=== PATIENT | female | born 1950 | race Caucasian/White ===

== ENCOUNTER 2017-08-25 13:18 | Emergency (ER) | payer MEDICARE ==
[2017-08-25 13:30] VITALS: BP 130/76
--- NOTE | 2017-08-25 13:54 | UC ---
Eye Complaint HPI - HPI Summary HPI Summary: c/o right eye pain over superior eyelid since yesterday, has been applying compresses - History of Current Complaint Chief Complaint: UCEye Stated Complaint: EYE ISSUE Time Seen by Provider: 08/25/17 13:38 Hx Obtained From: Patient ?: No Onset/Duration: Sudden Onset, Lasting Days - Allergies/Home Medications Allergies/Adverse Reactions: Allergies Allergy/AdvReac Type Severity Reaction Status Date / Time No Known Allergies Allergy Verified 08/25/17 13:27 PMH/Surg Hx/FS Hx/Imm Hx Previously Healthy: Yes Cancer History: Other - multiple myeloma Other Cancer History: multiple myeloma - Surgical History Surgical History: Yes Surgery Procedure, Year, and Place: STEM CELL TRANSPLANT 2011, TONSILECTOMY AGE 7, LYPOMA REMOVAL 1971, FIBROADENOMA REMOVED, RT FOOT BUNIONECTOMY - Social History Alcohol Use: None Substance Use Type: None Smoking Status (MU): Never Smoked Tobacco Review of Systems All Other Systems Reviewed And Are Negative: Yes Physical Exam Triage Information Reviewed: Yes Appearance: Well-Appearing Vital Signs: Initial Vital Signs Temp 98 F 08/25/17 13:28 Pulse 67 08/25/17 13:28 Resp 16 08/25/17 13:28 BP 130/76 08/25/17 13:28 Pulse Ox 99 08/25/17 13:28 Vital Signs Reviewed: Yes Eye Exam: Other Eyes: Positive: Discharge ENT Exam: Normal ENT: Positive: TMs normal Neck exam: Normal Respiratory Exam: Normal Cardiovascular Exam: Normal Eye Complaint Course/Dx - Differential Dx/Diagnosis Provider Diagnoses: hordeolum Discharge - Discharge Plan Condition: Stable Disposition: HOME Patient Education Materials: Amelie (ED)
== END 2017-08-25 14:15 | disposition home or self-care (01) ==
LOC: UCEAST 13:18
DX: H00.013 Hordeolum externum right eye, unspecified eyelid (principal); C90.00 Multiple myeloma not having achieved remission
CPT/HCPCS: 99212; G0463

== ENCOUNTER 2018-06-29 14:24 | Emergency (ER) | payer MEDICARE ==
--- OUTSIDE RECORDS SUMMARY | 2018-06-29 14:30 | XMS REPORT ---
:1950 External Reference #:[id number] Author Organization [facility] Address [facility] [place] [address] Phone [phone] Care Team Providers Name Role Phone Sunny Dc MD FACP Primary Care Physician Unavailable Payers Type Date Identification Numbers Payment Provider Subscriber Commercial Expires: Policy Number: [id number] Of BERE Villanueva 2015 PayID: [id number] [address] [address] [place] [address] Medicare Primary Policy Number: [id number] Medicare [place] Anish Villanueva PayID: [id number] [address] [place] [address] [facility] Policy Number: [id number] [facility] Health Care Options Anish Villanueva PayID: [id number] [facility] Care Claim 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 Family History Date Family Member(s) Problem(s) Comments Father CKD : (age 96 Father due to Natural Years) Causes Father Bladder Cancer Father Melanoma Mother Multiple Myeloma Advance state as of 2014 Mother Melanoma Mother Hypertension Mother Leukemia First Sister 63 Social History Type Date Description Comments Marital Status Single Occupation 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 ETOH Use Never used alcohol Smoking Patient has never smoked Recreational Drug Use Never Used Drugs Exercise Type/Frequency Exercises regularly 1 hour a day, 5 days a week Allergies, Adverse Reactions, Alerts Date Description Reaction Status Severity Comments 05/12/2015 NKDA active Medications Medication Date Status Form Strength Qnty SIG Indications Ordering Provider Valacyclovir HCL 11/18/19 Active Tablets 1gm 1 by Natacha, 16 mouth Frank E., every MD day Vitamin D3 10/29/19 Active Chewtabs 1000Unit 1 by M41.25 Natacha, 14 mouth Frank E., every MD day C90.00 Dexamethasone 09/28/2013 Active Tablets 4mg Take 3 tablets C90.00 Bael , by mouth daily Frank for 3 weeks each EMD Brandon month for multiple myeloma Zometa 10/29/2010 Active Solution 4mg/10 Administer 100 C90.00 Bael, 0ML ml intravenously Frank every 4-12 weeks EMD Brandon over 15 minutes for multiple myeloma Oseltamivir 12/04/2017 - Hx Capsules 75mg Take 1 capsule Natacha, Phosphate 12/09/2017 by mouth 2 times Frank per day for 5 EMD Brandon days for flu Pomalyst 02/26/2013 - Hx Capsules 2mg Take 2 capsules C90.00 Bael, 05/16/2016 by mouth daily Frank for 21 days 2 EMD Brandon hours before or 2 hours after a meal for multiple myeloma Immunizations CPT Code Status Date Vaccine Lot # [id number] Given 07/29/2014 Influenza Virus Split 3 Yrs And Above For Intramuscular Use [id number] Given 12/19/2012 Pneumococcal Vaccine 2Yrs Or Older [id number] Given 11/22/2012 Tdap-Tetanus, Diphtheria Toxoids/Acellular Pertussis Vaccine 7+ [id number] Refused 08/15/2017 Influenza Vaccine Quadrivalent Preser/Antibiotic Free Im Use Vital Signs Date Vital Result Comment 05/29/2018 Heart Rate 74 /min BP Systolic 95 mmHg BP Diastolic 70 mmHg BMI (Body Mass Index) 21.1 kg/m2 Weight 99.00 lb Height 57.5 inches 4'9.50" 12/06/2017 Body Temperature 97.7 F Heart Rate 78 /min BP Systolic 118 mmHg BP Diastolic 75 mmHg 08/15/2017 Body Temperature 97.6 F 05/28/2017 Body Temperature 98.1 F O2 % BldC Oximetry 95 % Heart Rate 62 /min BP Systolic 115 mmHg BP Diastolic 70 mmHg BMI (Body Mass Index) 21.3 kg/m2 Weight 100.00 lb Height 57.50 inches 4'9.50" 05/16/2016 Heart Rate 72 /min BP Systolic 90 mmHg BP Diastolic 60 mmHg BMI (Body Mass Index) 20.6 kg/m2 Weight 97.00 lb Height 57.5 inches 4'9.50" 01/18/2016 Weight 98.00 lb 05/12/2015 Body Temperature 98.6 F O2 % BldC Oximetry 98 % Heart Rate 69 /min BP Systolic 95 mmHg BP Diastolic 60 mmHg BMI (Body Mass Index) 20.3 kg/m2 Weight 97.00 lb Height 58 inches 4'10" Results Test Date Test Result H/L Range Note [place]/Lambda Free Light 06/03/2018 [place] Free Light Chain 278 mg/dL 1 Chains Ser Lambda Free Light Chain 0.1250 mg/dL 2 [place]/Lambda Free Light Chain >1000 3 Immunoglobulins Serum Quant 06/03/2018 Immunoglobulin G 280 mg/dL 767 - 1590 4 Immunoglobulin M <5 mg/dL 37 - 286 Immunoglobulin A 6 mg/dL 61 - 356 CBC Auto Diff 06/03/2018 White Blood Count 3.1 10^3/uL Low 3.5-10.8 Red Blood Count 3.90 10^6/uL Low 4.00-5.40 Hemoglobin 12.0 g/dL 12.0-16.0 Hematocrit 36 % 35-47 Mean Corpuscular Volume 92 fL 80-97 Mean Corpuscular Hemoglobin 31 pg 27-31 Mean Corpuscular HGB Conc 33 g/dL 31-36 Red Cell Distribution Width 16 % High 10.5-15 Platelet Count 207 10^3/uL 150-450 Mean Platelet Volume 7.6 um3 7.4-10.4 Abs Neutrophils 1.8 10^3/uL 1.5-7.7 Abs Lymphocytes 0.4 10^3/uL Low 1.0-4.8 Abs Monocytes 0.8 10^3/uL 0-0.8 Abs Eosinophils 0.1 10^3/uL 0-0.6 Abs Basophils 0 10^3/uL 0-0.2 Abs Nucleated RBC 0 10^3/uL Granulocyte % 58.9 % 38-83 Lymphocyte % 12.5 % Low 25-47 Monocyte % 24.4 % High 0-7 Eosinophil % 2.6 % 0-6 Basophil % 1.6 % 0-2 Nucleated Red Blood Cells % 0.2 Comp Metabolic Panel 06/03/2018 Sodium 138 mmol/L 135-145 Potassium 4.1 mmol/L 3.5-5.0 Chloride 104 mmol/L 101-111 Co2 Carbon Dioxide 29 mmol/L 22-32 Anion Gap 5 mmol/L 2-11 Calcium 9.5 mg/dL 8.6-10.3 Albumin 4.2 g/dL 3.2-5.2 Total Bilirubin 0.50 mg/dL 0.2-1.0 Glucose 95 mg/dL 70-100 Blood Urea Nitrogen 14 mg/dL 6-24 Creatinine 0.67 mg/dL 0.51-0.95 BUN/Creatinine Ratio 20.9 High 8-20 Total Protein 6.0 g/dL Low 6.4-8.9 Globulin 1.8 g/dL Low 2-4 Albumin/Globulin Ratio 2.3 1-3 Alkaline Phosphatase 53 U/L 34-104 Alt 17 U/L 7-52 Ast 19 U/L 13-39 Egfr Non- 87.8 >60 Egfr 106.2 >60 5 Laboratory test finding 06/03/2018 Magnesium 2.0 mg/dL 1.9-2.7 Laboratory test finding 06/03/2018 Partial Thrombo Time 32.0 seconds 26.0 -36.3 PTT Inr/Protime 06/03/2018 Inr 0.97 0.77-1.02 Laboratory test finding 05/20/2018 Magnesium 2.0 mg/dL 1.9-2.7 6 CBC Auto Diff 05/20/2018 White Blood Count 2.4 10^3/uL Low 3.5-10.8 Red Blood Count 3.69 10^6/uL Low 4.00-5.40 Hemoglobin 11.4 g/dL Low 12.0-16.0 Hematocrit 34 % Low 35-47 Mean Corpuscular Volume 92 fL 80-97 Mean Corpuscular Hemoglobin 31 pg 27-31 Mean Corpuscular HGB Conc 34 g/dL 31-36 Red Cell Distribution Width 16 % High 10.5-15 Platelet Count 263 10^3/uL 150-450 Mean Platelet Volume 8.5 um3 7.4-10.4 Abs Neutrophils 1.4 10^3/uL Low 1.5-7.7 Abs Lymphocytes 0.5 10^3/uL Low 1.0-4.8 Abs Monocytes 0.4 10^3/uL 0-0.8 Abs Eosinophils 0 10^3/uL 0-0.6 Abs Basophils 0.1 10^3/uL 0-0.2 Abs Nucleated RBC 0 10^3/uL Granulocyte % 58.6 % 38-83 Lymphocyte % 20.3 % Low 25-47 Monocyte % 16.6 % High 0-7 Eosinophil % 2.0 % 0-6 Basophil % 2.5 % High 0-2 Nucleated Red Blood Cells % 0.2 Comp Metabolic Panel 05/20/2018 Sodium 139 mmol/L 135-145 Potassium 4.5 mmol/L 3.5-5.0 Chloride 105 mmol/L 101-111 Co2 Carbon Dioxide 28 mmol/L 22-32 Anion Gap 6 mmol/L 2-11 Glucose 89 mg/dL 70-100 Blood Urea Nitrogen 15 mg/dL 6-24 Creatinine 0.66 mg/dL 0.51-0.95 BUN/Creatinine Ratio 22.7 High 8-20 Calcium 9.2 mg/dL 8.6-10.3 Total Protein 5.5 g/dL Low 6.4-8.9 Albumin 4.0 g/dL 3.2-5.2 Globulin 1.5 g/dL Low 2-4 Albumin/Globulin Ratio 2.7 1-3 Total Bilirubin 0.40 mg/dL 0.2-1.0 Alkaline Phosphatase 49 U/L 34-104 Alt 16 U/L 7-52 Ast 19 U/L 13-39 Egfr Non- 89.3 >60 Egfr 108.1 >60 7 Laboratory test finding 05/13/2018 Magnesium 1.8 mg/dL Low 1.9-2.7 CBC Auto Diff 05/13/2018 White Blood Count 3.0 10^3/uL Low 3.5-10.8 Red Blood Count 3.79 10^6/uL Low 4.00-5.40 Hemoglobin 12.0 g/dL 12.0-16.0 Hematocrit 35 % 35-47 Mean Corpuscular Volume 92 fL 80-97 Mean Corpuscular Hemoglobin 32 pg High 27-31 Mean Corpuscular HGB Conc 35 g/dL 31-36 Red Cell Distribution Width 16 % High 10.5-15 Platelet Count 237 10^3/uL 150-450 Mean Platelet Volume 7.9 um3 7.4-10.4 Abs Neutrophils 1.9 10^3/uL 1.5-7.7 Abs Lymphocytes 0.5 10^3/uL Low 1.0-4.8 Abs Monocytes 0.6 10^3/uL 0-0.8 Abs Eosinophils 0 10^3/uL 0-0.6 Abs Basophils 0 10^3/uL 0-0.2 Abs Nucleated RBC 0 10^3/uL Granulocyte % 63.4 % 38-83 Lymphocyte % 16.0 % Low 25-47 Monocyte % 18.6 % High 0-7 Eosinophil % 0.7 % 0-6 Basophil % 1.3 % 0-2 Nucleated Red Blood Cells % 0.1 Comp Metabolic Panel 05/13/2018 Sodium 137 mmol/L 135-145 Potassium 4.1 mmol/L 3.5-5.0 Chloride 104 mmol/L 101-111 Co2 Carbon Dioxide 27 mmol/L 22-32 Anion Gap 6 mmol/L 2-11 Glucose 87 mg/dL 70-100 Blood Urea Nitrogen 13 mg/dL 6-24 Creatinine 0.67 mg/dL 0.51-0.95 BUN/Creatinine Ratio 19.4 8-20 Calcium 9.1 mg/dL 8.6-10.3 Total Protein 5.5 g/dL Low 6.4-8.9 Albumin 4.0 g/dL 3.2-5.2 Globulin 1.5 g/dL Low 2-4 Albumin/Globulin Ratio 2.7 1-3 Total Bilirubin 0.50 mg/dL 0.2-1.0 Alkaline Phosphatase 51 U/L 34-104 Alt 18 U/L 7-52 Ast 20 U/L 13-39 Egfr Non- 87.8 >60 Egfr 106.2 >60 8 Protein Electrophoresis 04/27/2018 Total Protein(Pep) 5.6 g/dL 6.3 - 7.9 Albumin 3.3 g/dL 3.4-4.7 Alpha-1 Globulin 0.3 g/dL 0.1-0.3 Alpha-2 Globulin 1.0 g/dL 0.6-1.0 Beta Globulin 0.8 g/dL 0.7-1.2 Gamma Globulin 0.3 g/dL 0.6-1.6 Albumin/Globulin Ratio 1.44 Impression See Comment 9 Immunoglobulins Serum Quant 04/27/2018 Immunoglobulin G 223 mg/dL 767 - 1590 10 Immunoglobulin M <5 mg/dL 37 - 286 Immunoglobulin A 4 mg/dL 61 - 356 CBC Auto Diff 04/27/2018 White Blood Count 4.1 10^3/uL 3.5-10.8 Red Blood Count 3.81 10^6/uL Low 4.00-5.40 Hemoglobin 11.6 g/dL Low 12.0-16.0 Hematocrit 35 % 35-47 Mean Corpuscular Volume 91 fL 80-97 Mean Corpuscular Hemoglobin 30 pg 27-31 Mean Corpuscular HGB Conc 33 g/dL 31-36 Red Cell Distribution Width 16 % High 10.5-15 Platelet Count 270 10^3/uL 150-450 Mean Platelet Volume 8.3 um3 7.4-10.4 Abs Neutrophils 3.3 10^3/uL 1.5-7.7 Abs Lymphocytes 0.3 10^3/uL Low 1.0-4.8 Abs Monocytes 0.5 10^3/uL 0-0.8 Abs Eosinophils 0 10^3/uL 0-0.6 Abs Basophils 0 10^3/uL 0-0.2 Abs Nucleated RBC 0 10^3/uL Granulocyte % 80.1 % 38-83 Lymphocyte % 6.8 % Low 25-47 Monocyte % 12.0 % High 0-7 Eosinophil % 0.4 % 0-6 Basophil % 0.7 % 0-2 Nucleated Red Blood Cells % 0.2 Comp Metabolic Panel 04/27/2018 Sodium 137 mmol/L 135-145 Potassium 4.6 mmol/L 3.5-5.0 Chloride 104 mmol/L 101-111 Co2 Carbon Dioxide 25 mmol/L 22-32 Anion Gap 8 mmol/L 2-11 Glucose 83 mg/dL 70-100 Blood Urea Nitrogen 15 mg/dL 6-24 Creatinine 0.67 mg/dL 0.51-0.95 BUN/Creatinine Ratio 22.4 High 8-20 Calcium 9.1 mg/dL 8.6-10.3 Total Protein 5.7 g/dL Low 6.4-8.9 Albumin 4.0 g/dL 3.2-5.2 Globulin 1.7 g/dL Low 2-4 Albumin/Globulin Ratio 2.4 1-3 Total Bilirubin 0.50 mg/dL 0.2-1.0 Alkaline Phosphatase 54 U/L 34-104 Alt 18 U/L 7-52 Ast 20 U/L 13-39 Egfr Non- 87.8 >60 Egfr 106.2 >60 11 [place]/Lambda Free Light Chains Ser 04/27/2018 [place] Free Light Chain 327 mg/ dL 12 Lambda Free Light Chain 0.0422 mg/dL 13 [place]/Lambda Free Light Chain >1000 14 Laboratory test finding 04/27/2018 Magnesium 1.9 mg/dL 1.9-2.7 15 Immunoglobulins Serum Quant 04/08/2018 Immunoglobulin G 231 mg/dL 767 - 1590 16 Immunoglobulin M <5 mg/dL 37 - 286 Immunoglobulin A 4 mg/dL 61 - 356 Protein Electrophoresis 04/08/2018 Total Protein(Pep) 6.1 g/dL 6.3 - 7.9 Albumin 3.4 g/dL 3.4-4.7 Alpha-1 Globulin 0.3 g/dL 0.1-0.3 Alpha-2 Globulin 1.1 g/dL 0.6-1.0 Beta Globulin 0.9 g/dL 0.7-1.2 Gamma Globulin 0.3 g/dL 0.6-1.6 Albumin/Globulin Ratio 1.29 Impression See Comment 17 CBC Auto Diff 04/08/2018 White Blood Count 4.3 10^3/uL 3.5-10.8 Red Blood Count 3.76 10^6/uL Low 4.00-5.40 Hemoglobin 11.4 g/dL Low 12.0-16.0 Hematocrit 34 % Low 35-47 Mean Corpuscular Volume 91 fL 80-97 Mean Corpuscular Hemoglobin 30 pg 27-31 Mean Corpuscular HGB Conc 33 g/dL 31-36 Red Cell Distribution Width 17 % High 10.5-15 Platelet Count 214 10^3/uL 150-450 Mean Platelet Volume 8.8 um3 7.4-10.4 Abs Neutrophils 3.3 10^3/uL 1.5-7.7 Abs Lymphocytes 0.6 10^3/uL Low 1.0-4.8 Abs Monocytes 0.4 10^3/uL 0-0.8 Abs Eosinophils 0 10^3/uL 0-0.6 Abs Basophils 0 10^3/uL 0-0.2 Abs Nucleated RBC 0 10^3/uL Granulocyte % 77.4 % 38-83 Lymphocyte % 13.5 % Low 25-47 Monocyte % 8.5 % High 0-7 Eosinophil % 0.1 % 0-6 Basophil % 0.5 % 0-2 Nucleated Red Blood Cells % 0.1 Comp Metabolic Panel 04/08/2018 Sodium 138 mmol/L Low 139-145 Potassium 4.6 mmol/L 3.5-5.0 Chloride 104 mmol/L 101-111 Co2 Carbon Dioxide 26 mmol/L 22-32 Anion Gap 8 mmol/L 2-11 Glucose 89 mg/dL 70-100 Blood Urea Nitrogen 17 mg/dL 6-24 Creatinine 0.74 mg/dL 0.51-0.95 BUN/Creatinine Ratio 23.0 High 8-20 Calcium 9.4 mg/dL 8.6-10.3 Total Protein 5.9 g/dL Low 6.4-8.9 Albumin 4.2 g/dL 3.2-5.2 Globulin 1.7 g/dL Low 2-4 Albumin/Globulin Ratio 2.5 1-3 Total Bilirubin 0.40 mg/dL 0.2-1.0 Alkaline Phosphatase 49 U/L 34-104 Alt 16 U/L 7-52 Ast 20 U/L 13-39 Egfr Non- 78.3 >60 Egfr 100.7 >60 18 [place]/Lambda Free Light Chains Ser 04/08/2018 [place] Free Light Chain 283 mg/ dL 19 Lambda Free Light Chain 0.0413 mg/dL 20 [place]/Lambda Free Light Chain >1000 21 Laboratory test finding 04/08/2018 Magnesium 2.0 mg/dL 1.9-2.7 CBC Auto Diff 04/01/2018 White Blood Count 4.4 10^3/uL 3.5-10.8 Red Blood Count 3.71 10^6/uL Low 4.0-5.4 Hemoglobin 11.5 g/dL Low 12.0-16.0 Hematocrit 34 % Low 35-47 Mean Corpuscular Volume 91 fL 80-97 Mean Corpuscular Hemoglobin 31 pg 27-31 Mean Corpuscular HGB Conc 34 g/dL 31-36 Red Cell Distribution Width 17 % High 10.5-15 Platelet Count 222 10^3/uL 150-450 Mean Platelet Volume 8.9 um3 7.4-10.4 Abs Neutrophils 3.3 10^3/uL 1.5-7.7 Abs Lymphocytes 0.6 10^3/uL Low 1.0-4.8 Abs Monocytes 0.4 10^3/uL 0-0.8 Abs Eosinophils 0 10^3/uL 0-0.6 Abs Basophils 0 10^3/uL 0-0.2 Abs Nucleated RBC 0 10^3/uL Granulocyte % 76.0 % 38-83 Lymphocyte % 13.5 % Low 25-47 Monocyte % 9.7 % High 0-7 Eosinophil % 0.2 % 0-6 Basophil % 0.6 % 0-2 Nucleated Red Blood Cells % 0 Laboratory test finding 04/01/2018 Magnesium 2.0 mg/dL 1.9-2.7 22 Comp Metabolic Panel 04/01/2018 Sodium 139 mmol/L 139-145 Potassium 4.2 mmol/L 3.5-5.0 Chloride 104 mmol/L 101-111 Co2 Carbon Dioxide 28 mmol/L 22-32 Anion Gap 7 mmol/L 2-11 Glucose 88 mg/dL 70-100 Blood Urea Nitrogen 16 mg/dL 6-24 Creatinine 0.70 mg/dL 0.51-0.95 BUN/Creatinine Ratio 22.9 High 8-20 Calcium 9.2 mg/dL 8.6-10.3 Total Protein 5.6 g/dL Low 6.4-8.9 Albumin 4.0 g/dL 3.2-5.2 Globulin 1.6 g/dL Low 2-4 Albumin/Globulin Ratio 2.5 1-3 Total Bilirubin 0.40 mg/dL 0.2-1.0 Alkaline Phosphatase 49 U/L 34-104 Alt 15 U/L 7-52 Ast 20 U/L 13-39 Egfr Non- 83.5 >60 Egfr 107.3 >60 23 Protein Electrophoresis 03/21/2018 Total Protein(Pep) 5.8 g/dL 6.3 - 7.9 Albumin 3.4 g/dL 3.4-4.7 Alpha-1 Globulin 0.3 g/dL 0.1-0.3 Alpha-2 Globulin 1.0 g/dL 0.6-1.0 Beta Globulin 0.9 g/dL 0.7-1.2 Gamma Globulin 0.3 g/dL 0.6-1.6 Albumin/Globulin Ratio 1.42 Impression See Comment 24 Immunoglobulins Serum Quant 03/21/2018 Immunoglobulin G 234 mg/dL 767 - 1590 25 Immunoglobulin M <5 mg/dL 37 - 286 Immunoglobulin A 4 mg/dL 61 - 356 CBC Auto Diff 03/21/2018 White Blood Count 5.6 10^3/uL 3.5-10.8 Red Blood Count 3.85 10^6/uL Low 4.0-5.4 Hemoglobin 11.3 g/dL Low 12.0-16.0 Hematocrit 35 % 35-47 Mean Corpuscular Volume 91 fL 80-97 Mean Corpuscular Hemoglobin 30 pg 27-31 Mean Corpuscular HGB Conc 32 g/dL 31-36 Red Cell Distribution Width 17 % High 10.5-15 Platelet Count 225 10^3/uL 150-450 Mean Platelet Volume 8.5 um3 7.4-10.4 Abs Neutrophils 4.8 10^3/uL 1.5-7.7 Abs Lymphocytes 0.4 10^3/uL Low 1.0-4.8 Abs Monocytes 0.5 10^3/uL 0-0.8 Abs Eosinophils 0 10^3/uL 0-0.6 Abs Basophils 0 10^3/uL 0-0.2 Abs Nucleated RBC 0 10^3/uL Granulocyte % 84.4 % High 38-83 Lymphocyte % 6.5 % Low 25-47 Monocyte % 8.5 % High 0-7 Eosinophil % 0.2 % 0-6 Basophil % 0.4 % 0-2 Nucleated Red Blood Cells % 0 [place]/Lambda Free Light Chains Ser 03/21/2018 [place] Free Light Chain 175 mg/ dL 26 Lambda Free Light Chain <0.0274 mg/dL 27 [place]/Lambda Free Light Chain >1000 28 Comp Metabolic Panel 03/21/2018 Sodium 139 mmol/L 139-145 Potassium 4.4 mmol/L 3.5-5.0 Chloride 105 mmol/L 101-111 Co2 Carbon Dioxide 28 mmol/L 22-32 Anion Gap 6 mmol/L 2-11 Glucose 83 mg/dL 70-100 Blood Urea Nitrogen 18 mg/dL 6-24 Creatinine 0.71 mg/dL 0.51-0.95 BUN/Creatinine Ratio 25.4 High 8-20 Calcium 9.0 mg/dL 8.6-10.3 Total Protein 5.8 g/dL Low 6.4-8.9 Albumin 4.1 g/dL 3.2-5.2 Globulin 1.7 g/dL Low 2-4 Albumin/Globulin Ratio 2.4 1-3 Total Bilirubin 0.40 mg/dL 0.2-1.0 Alkaline Phosphatase 51 U/L 34-104 Alt 16 U/L 7-52 Ast 22 U/L 13-39 Egfr Non- 82.1 >60 Egfr 105.6 >60 29 Laboratory test finding 03/21/2018 Magnesium 1.9 mg/dL 1.9-2.7 30 [place]/Lambda Free Light 03/18/2018 [place] Free Light Chain 188 mg/dL 31 Chains Ser Lambda Free Light Chain 0.1790 mg/dL 32 [place]/Lambda Free Light Chain >1000 33 CBC Auto Diff 03/18/2018 White Blood Count 4.4 10^3/uL 3.5-10.8 Red Blood Count 3.76 10^6/uL Low 4.0-5.4 Hemoglobin 11.6 g/dL Low 12.0-16.0 Hematocrit 34 % Low 35-47 Mean Corpuscular Volume 90 fL 80-97 Mean Corpuscular Hemoglobin 31 pg 27-31 Mean Corpuscular HGB Conc 34 g/dL 31-36 Red Cell Distribution Width 17 % High 10.5-15 Platelet Count 239 10^3/uL 150-450 Mean Platelet Volume 8.5 um3 7.4-10.4 Abs Neutrophils 3.4 10^3/uL 1.5-7.7 Abs Lymphocytes 0.6 10^3/uL Low 1.0-4.8 Abs Monocytes 0.3 10^3/uL 0-0.8 Abs Eosinophils 0 10^3/uL 0-0.6 Abs Basophils 0 10^3/uL 0-0.2 Abs Nucleated RBC 0 10^3/uL Granulocyte % 77.6 % 38-83 Lymphocyte % 14.0 % Low 25-47 Monocyte % 7.8 % High 0-7 Eosinophil % 0.3 % 0-6 Basophil % 0.3 % 0-2 Nucleated Red Blood Cells % 0 Comp Metabolic Panel 03/18/2018 Sodium 139 mmol/L 139-145 Potassium 4.3 mmol/L 3.5-5.0 Chloride 104 mmol/L 101-111 Co2 Carbon Dioxide 27 mmol/L 22-32 Anion Gap 8 mmol/L 2-11 Glucose 89 mg/dL 70-100 Blood Urea Nitrogen 17 mg/dL 6-24 Creatinine 0.67 mg/dL 0.51-0.95 BUN/Creatinine Ratio 25.4 High 8-20 Calcium 9.1 mg/dL 8.6-10.3 Total Protein 5.7 g/dL Low 6.4-8.9 Albumin 4.1 g/dL 3.2-5.2 Globulin 1.6 g/dL Low 2-4 Albumin/Globulin Ratio 2.6 1-3 Total Bilirubin 0.40 mg/dL 0.2-1.0 Alkaline Phosphatase 47 U/L 34-104 Alt 15 U/L 7-52 Ast 22 U/L 13-39 Egfr Non- 87.8 >60 Egfr 112.9 >60 34 Laboratory test finding 03/18/2018 Magnesium 1.9 mg/dL 1.9-2.7 35 Comp Metabolic Panel 03/04/2018 Sodium 138 mmol/L Low 139-145 Potassium 4.2 mmol/L 3.5-5.0 Chloride 104 mmol/L 101-111 Co2 Carbon Dioxide 29 mmol/L 22-32 Anion Gap 5 mmol/L 2-11 Glucose 88 mg/dL 70-100 Blood Urea Nitrogen 13 mg/dL 6-24 Creatinine 0.67 mg/dL 0.51-0.95 BUN/Creatinine Ratio 19.4 8-20 Calcium 9.0 mg/dL 8.6-10.3 Total Protein 5.7 g/dL Low 6.4-8.9 Albumin 4.1 g/dL 3.2-5.2 Globulin 1.6 g/dL Low 2-4 Albumin/Globulin Ratio 2.6 1-3 Total Bilirubin 0.30 mg/dL 0.2-1.0 Alkaline Phosphatase 42 U/L 34-104 Alt 15 U/L 7-52 Ast 19 U/L 13-39 Egfr Non- 87.8 >60 Egfr 112.9 >60 36 Laboratory test finding 03/04/2018 Magnesium 2.2 mg/dL 1.9-2.7 37 CBC Auto Diff 03/04/2018 White Blood Count 3.4 10^3/uL Low 3.5-10.8 Red Blood Count 3.82 10^6/uL Low 4.0-5.4 Hemoglobin 11.4 g/dL Low 12.0-16.0 Hematocrit 34 % Low 35-47 Mean Corpuscular Volume 90 fL 80-97 Mean Corpuscular Hemoglobin 30 pg 27-31 Mean Corpuscular HGB Conc 33 g/dL 31-36 Red Cell Distribution Width 18 % High 10.5-15 Platelet Count 252 10^3/uL 150-450 Mean Platelet Volume 8.6 um3 7.4-10.4 Abs Neutrophils 2.5 10^3/uL 1.5-7.7 Abs Lymphocytes 0.6 10^3/uL Low 1.0-4.8 Abs Monocytes 0.3 10^3/uL 0-0.8 Abs Eosinophils 0 10^3/uL 0-0.6 Abs Basophils 0 10^3/uL 0-0.2 Abs Nucleated RBC 0 10^3/uL Granulocyte % 73.8 % 38-83 Lymphocyte % 17.0 % Low 25-47 Monocyte % 8.2 % High 0-7 Eosinophil % 0.3 % 0-6 Basophil % 0.7 % 0-2 Nucleated Red Blood Cells % 0.1 CBC Auto Diff 02/22/2018 White Blood Count 4.1 10^3/uL 3.5-10.8 Red Blood Count 3.82 10^6/uL Low 4.0-5.4 Hemoglobin 11.3 g/dL Low 12.0-16.0 Hematocrit 34 % Low 35-47 Mean Corpuscular Volume 90 fL 80-97 Mean Corpuscular Hemoglobin 30 pg 27-31 Mean Corpuscular HGB Conc 33 g/dL 31-36 Red Cell Distribution Width 18 % High 10.5-15 Platelet Count 191 10^3/uL 150-450 Mean Platelet Volume 9.0 um3 7.4-10.4 Abs Neutrophils 3.1 10^3/uL 1.5-7.7 Abs Lymphocytes 0.4 10^3/uL Low 1.0-4.8 Abs Monocytes 0.5 10^3/uL 0-0.8 Abs Eosinophils 0 10^3/uL 0-0.6 Abs Basophils 0 10^3/uL 0-0.2 Abs Nucleated RBC 0 10^3/uL Granulocyte % 76.6 % 38-83 Lymphocyte % 10.8 % Low 25-47 Monocyte % 11.9 % High 0-7 Eosinophil % 0.2 % 0-6 Basophil % 0.5 % 0-2 Nucleated Red Blood Cells % 0.2 Comp Metabolic Panel 02/22/2018 Sodium 138 mmol/L Low 139-145 Potassium 3.8 mmol/L 3.5-5.0 Chloride 103 mmol/L 101-111 Co2 Carbon Dioxide 27 mmol/L 22-32 Anion Gap 8 mmol/L 2-11 Glucose 81 mg/dL 70-100 Blood Urea Nitrogen 19 mg/dL 6-24 Creatinine 0.71 mg/dL 0.51-0.95 BUN/Creatinine Ratio 26.8 High 8-20 Calcium 9.1 mg/dL 8.6-10.3 Total Protein 5.8 g/dL Low 6.4-8.9 Albumin 4.2 g/dL 3.2-5.2 Globulin 1.6 g/dL Low 2-4 Albumin/Globulin Ratio 2.6 1-3 Total Bilirubin 0.40 mg/dL 0.2-1.0 Alkaline Phosphatase 43 U/L 34-104 Alt 18 U/L 7-52 Ast 23 U/L 13-39 Egfr Non- 82.1 >60 Egfr 105.6 >60 38 Laboratory test finding 02/22/2018 Magnesium 2.0 mg/dL 1.9-2.7 39 Protein Electrophoresis 02/22/2018 Total Protein(Pep) 6.0 g/dL 6.3 - 7.9 Albumin 3.4 g/dL 3.4-4.7 Alpha-1 Globulin 0.3 g/dL 0.1-0.3 Alpha-2 Globulin 1.1 g/dL 0.6-1.0 Beta Globulin 0.9 g/dL 0.7-1.2 Gamma Globulin 0.3 g/dL 0.6-1.6 Albumin/Globulin Ratio 1.33 Impression See Comment 40 [place]/Lambda Free Light Chains 02/22/2018 [place] Free Light Chain 83.6 mg/dL 41 Ser Lambda Free Light Chain 0.0532 mg/dL 42 [place]/Lambda Free Light Chain >1000 43 Immunoglobulins Serum Quant 02/22/2018 Immunoglobulin G 232 mg/dL 767 - 1590 44 Immunoglobulin M <5 mg/dL 37 - 286 Immunoglobulin A 3 mg/dL 61 - 356 CBC Auto Diff 02/18/2018 White Blood Count 4.3 10^3/uL 3.5-10.8 Red Blood Count 3.74 10^6/uL Low 4.0-5.4 Hemoglobin 11.4 g/dL Low 12.0-16.0 Hematocrit 33 % Low 35-47 Mean Corpuscular Volume 89 fL 80-97 Mean Corpuscular Hemoglobin 30 pg 27-31 Mean Corpuscular HGB Conc 34 g/dL 31-36 Red Cell Distribution Width 19 % High 10.5-15 Platelet Count 227 10^3/uL 150-450 Mean Platelet Volume 8.8 um3 7.4-10.4 Abs Neutrophils 3.4 10^3/uL 1.5-7.7 Abs Lymphocytes 0.6 10^3/uL Low 1.0-4.8 Abs Monocytes 0.3 10^3/uL 0-0.8 Abs Eosinophils 0 10^3/uL 0-0.6 Abs Basophils 0 10^3/uL 0-0.2 Abs Nucleated RBC 0 10^3/uL Granulocyte % 77.7 % 38-83 Lymphocyte % 14.1 % Low 25-47 Monocyte % 7.7 % High 0-7 Eosinophil % 0.1 % 0-6 Basophil % 0.4 % 0-2 Nucleated Red Blood Cells % 0.2 Comp Metabolic Panel 02/18/2018 Sodium 140 mmol/L 139-145 Potassium 4.3 mmol/L 3.5-5.0 Chloride 104 mmol/L 101-111 Co2 Carbon Dioxide 27 mmol/L 22-32 Anion Gap 9 mmol/L 2-11 Glucose 87 mg/dL 70-100 Blood Urea Nitrogen 15 mg/dL 6-24 Creatinine 0.71 mg/dL 0.51-0.95 BUN/Creatinine Ratio 21.1 High 8-20 Calcium 9.5 mg/dL 8.6-10.3 Total Protein 5.9 g/dL Low 6.4-8.9 Albumin 4.2 g/dL 3.2-5.2 Globulin 1.7 g/dL Low 2-4 Albumin/Globulin Ratio 2.5 1-3 Total Bilirubin 0.40 mg/dL 0.2-1.0 Alkaline Phosphatase 46 U/L 34-104 Alt 16 U/L 7-52 Ast 22 U/L 13-39 Egfr Non- 82.1 >60 Egfr 105.6 >60 45 Laboratory test finding 02/18/2018 Magnesium 2.0 mg/dL 1.9-2.7 CBC Auto Diff 02/11/2018 White Blood Count 3.9 10^3/uL 3.5-10.8 Red Blood Count 3.80 10^6/uL Low 4.0-5.4 Hemoglobin 11.5 g/dL Low 12.0-16.0 Hematocrit 34 % Low 35-47 Mean Corpuscular Volume 89 fL 80-97 Mean Corpuscular Hemoglobin 30 pg 27-31 Mean Corpuscular HGB Conc 34 g/dL 31-36 Red Cell Distribution Width 19 % High 10.5-15 Platelet Count 223 10^3/uL 150-450 Mean Platelet Volume 8.8 um3 7.4-10.4 Abs Neutrophils 2.8 10^3/uL 1.5-7.7 Abs Lymphocytes 0.7 10^3/uL Low 1.0-4.8 Abs Monocytes 0.5 10^3/uL 0-0.8 Abs Eosinophils 0 10^3/uL 0-0.6 Abs Basophils 0 10^3/uL 0-0.2 Abs Nucleated RBC 0 10^3/uL Granulocyte % 70.7 % 38-83 Lymphocyte % 16.7 % Low 25-47 Monocyte % 11.6 % High 0-7 Eosinophil % 0.3 % 0-6 Basophil % 0.7 % 0-2 Nucleated Red Blood Cells % 0.1 Comp Metabolic Panel 02/11/2018 Sodium 138 mmol/L Low 139-145 Potassium 4.0 mmol/L 3.5-5.0 Chloride 104 mmol/L 101-111 Co2 Carbon Dioxide 28 mmol/L 22-32 Anion Gap 6 mmol/L 2-11 Glucose 85 mg/dL 70-100 Blood Urea Nitrogen 15 mg/dL 6-24 Creatinine 0.70 mg/dL 0.51-0.95 BUN/Creatinine Ratio 21.4 High 8-20 Calcium 9.3 mg/dL 8.6-10.3 Total Protein 5.8 g/dL Low 6.4-8.9 Albumin 4.3 g/dL 3.2-5.2 Globulin 1.5 g/dL Low 2-4 Albumin/Globulin Ratio 2.9 1-3 Total Bilirubin 0.40 mg/dL 0.2-1.0 Alkaline Phosphatase 57 U/L 34-104 Alt 17 U/L 7-52 Ast 22 U/L 13-39 Egfr Non- 83.5 >60 Egfr 107.3 >60 46 Laboratory test finding 02/11/2018 Magnesium 2.0 mg/dL 1.9-2.7 47 Laboratory test finding 01/28/2018 Magnesium 2.0 mg/dL 1.9-2.7 Protein Electrophoresis 01/28/2018 Total Protein(Pep) 6.1 g/dL 6.3 - 7.9 Albumin 3.5 g/dL 3.4-4.7 Alpha-1 Globulin 0.3 g/dL 0.1-0.3 Alpha-2 Globulin 1.1 g/dL 0.6-1.0 Beta Globulin 0.9 g/dL 0.7-1.2 Gamma Globulin 0.3 g/dL 0.6-1.6 Albumin/Globulin Ratio 1.36 Impression See Comment 48 Immunoglobulins Serum Quant 01/28/2018 Immunoglobulin G 276 mg/dL 767 - 1590 49 Immunoglobulin M <5 mg/dL 37 - 286 Immunoglobulin A 5 mg/dL 61 - 356 [place]/Lambda Free Light Chains 01/28/2018 [place] Free Light Chain 98.3 mg/dL 50 Ser Lambda Free Light Chain 0.0282 mg/dL 51 [place]/Lambda Free Light Chain >1000 52 CBC Auto Diff 01/28/2018 White Blood Count 2.1 10^3/uL Low 3.5-10.8 Red Blood Count 4.00 10^6/uL 4.0-5.4 Hemoglobin 11.9 g/dL Low 12.0-16.0 Hematocrit 35 % 35-47 Mean Corpuscular Volume 88 fL 80-97 Mean Corpuscular Hemoglobin 30 pg 27-31 Mean Corpuscular HGB Conc 34 g/dL 31-36 Red Cell Distribution Width 19 % High 10.5-15 Platelet Count 243 10^3/uL 150-450 Mean Platelet Volume 8.5 um3 7.4-10.4 Abs Neutrophils 1.4 10^3/uL Low 1.5-7.7 Abs Lymphocytes 0.5 10^3/uL Low 1.0-4.8 Abs Monocytes 0.2 10^3/uL 0-0.8 Abs Eosinophils 0 10^3/uL 0-0.6 Abs Basophils 0 10^3/uL 0-0.2 Abs Nucleated RBC 0 10^3/uL Granulocyte % 63.8 % 38-83 Lymphocyte % 22.3 % Low 25-47 Monocyte % 11.4 % High 0-7 Eosinophil % 1.3 % 0-6 Basophil % 1.2 % 0-2 Nucleated Red Blood Cells % 0.1 Comp Metabolic Panel 01/28/2018 Sodium 140 mmol/L 139-145 Potassium 3.9 mmol/L 3.5-5.0 Chloride 107 mmol/L 101-111 Co2 Carbon Dioxide 28 mmol/L 22-32 Anion Gap 5 mmol/L 2-11 Glucose 90 mg/dL 70-100 Blood Urea Nitrogen 14 mg/dL 6-24 Creatinine 0.65 mg/dL 0.51-0.95 BUN/Creatinine Ratio 21.5 High 8-20 Calcium 9.2 mg/dL 8.6-10.3 Total Protein 5.5 g/dL Low 6.4-8.9 Albumin 4.1 g/dL 3.2-5.2 Globulin 1.4 g/dL Low 2-4 Albumin/Globulin Ratio 2.9 1-3 Total Bilirubin 0.40 mg/dL 0.2-1.0 Alkaline Phosphatase 53 U/L 34-104 Alt 16 U/L 7-52 Ast 20 U/L 13-39 Egfr Non- 90.9 >60 Egfr 116.9 >60 53 CBC Auto Diff 01/21/2018 White Blood Count 5.2 10^3/uL 3.5-10.8 Red Blood Count 3.87 10^6/uL Low 4.0-5.4 Hemoglobin 11.5 g/dL Low 12.0-16.0 Hematocrit 34 % Low 35-47 Mean Corpuscular Volume 88 fL 80-97 Mean Corpuscular Hemoglobin 30 pg 27-31 Mean Corpuscular HGB Conc 34 g/dL 31-36 Red Cell Distribution Width 19 % High 10.5-15 Platelet Count 251 10^3/uL 150-450 Mean Platelet Volume 8.4 um3 7.4-10.4 Abs Neutrophils 4.2 10^3/uL 1.5-7.7 Abs Lymphocytes 0.5 10^3/uL Low 1.0-4.8 Abs Monocytes 0.4 10^3/uL 0-0.8 Abs Eosinophils 0 10^3/uL 0-0.6 Abs Basophils 0 10^3/uL 0-0.2 Abs Nucleated RBC 0 10^3/uL Granulocyte % 80.4 % 38-83 Lymphocyte % 9.9 % Low 25-47 Monocyte % 8.6 % High 0-7 Eosinophil % 0.2 % 0-6 Basophil % 0.9 % 0-2 Nucleated Red Blood Cells % 0.1 Comp Metabolic Panel 01/21/2018 Sodium 137 mmol/L 133-145 Potassium 4.2 mmol/L 3.5-5.0 Chloride 103 mmol/L 101-111 Co2 Carbon Dioxide 29 mmol/L 22-32 Anion Gap 5 mmol/L 2-11 Glucose 91 mg/dL 70-100 Blood Urea Nitrogen 15 mg/dL 6-24 Creatinine 0.68 mg/dL 0.51-0.95 BUN/Creatinine Ratio 22.1 High 8-20 Calcium 9.4 mg/dL 8.6-10.3 Total Protein 5.9 g/dL Low 6.4-8.9 Albumin 4.2 g/dL 3.2-5.2 Globulin 1.7 g/dL Low 2-4 Albumin/Globulin Ratio 2.5 1-3 Total Bilirubin 0.30 mg/dL 0.2-1.0 Alkaline Phosphatase 48 U/L 34-104 Alt 16 U/L 7-52 Ast 23 U/L 13-39 Egfr Non- 86.3 >60 Egfr 111.0 >60 54 Laboratory test finding 01/21/2018 Magnesium 2.0 mg/dL 1.9-2.7 55 CBC Auto Diff 01/14/2018 White Blood Count 5.4 10^3/uL 3.5-10.8 Red Blood Count 4.09 10^6/uL 4.0-5.4 Hemoglobin 12.0 g/dL 12.0-16.0 Hematocrit 35 % 35-47 Mean Corpuscular Volume 87 fL 80-97 Mean Corpuscular Hemoglobin 29 pg 27-31 Mean Corpuscular HGB Conc 34 g/dL 31-36 Red Cell Distribution Width 19 % High 10.5-15 Platelet Count 265 10^3/uL 150-450 Mean Platelet Volume 9 um3 7.4-10.4 Abs Neutrophils 4.4 10^3/uL 1.5-7.7 Abs Lymphocytes 0.5 10^3/uL Low 1.0-4.8 Abs Monocytes 0.4 10^3/uL 0-0.8 Abs Eosinophils 0 10^3/uL 0-0.6 Abs Basophils 0 10^3/uL 0-0.2 Abs Nucleated RBC 0 10^3/uL Granulocyte % 81.3 % 38-83 Lymphocyte % 10.0 % Low 25-47 Monocyte % 7.5 % High 0-7 Eosinophil % 0.4 % 0-6 Basophil % 0.8 % 0-2 Nucleated Red Blood Cells % 0.1 Comp Metabolic Panel 01/14/2018 Sodium 137 mmol/L 133-145 Potassium 4.0 mmol/L 3.5-5.0 Chloride 102 mmol/L 101-111 Co2 Carbon Dioxide 29 mmol/L 22-32 Anion Gap 6 mmol/L 2-11 Glucose 84 mg/dL 70-100 Blood Urea Nitrogen 17 mg/dL 6-24 Creatinine 0.70 mg/dL 0.51-0.95 BUN/Creatinine Ratio 24.3 High 8-20 Calcium 9.8 mg/dL 8.6-10.3 Total Protein 6.2 g/dL Low 6.4-8.9 Albumin 4.3 g/dL 3.2-5.2 Globulin 1.9 g/dL Low 2-4 Albumin/Globulin Ratio 2.3 1-3 Total Bilirubin 0.40 mg/dL 0.2-1.0 Alkaline Phosphatase 60 U/L 34-104 Alt 17 U/L 7-52 Ast 22 U/L 13-39 Egfr Non- 83.5 >60 Egfr 107.3 >60 56 Laboratory test finding 01/14/2018 Magnesium 2.1 mg/dL 1.9-2.7 57 CBC Auto Diff 01/07/2018 White Blood Count 4.3 10^3/uL 3.5-10.8 Red Blood Count 3.90 10^6/uL Low 4.0-5.4 Hemoglobin 11.4 g/dL Low 12.0-16.0 Hematocrit 34 % Low 35-47 Mean Corpuscular Volume 88 fL 80-97 Mean Corpuscular Hemoglobin 29 pg 27-31 Mean Corpuscular HGB Conc 33 g/dL 31-36 Red Cell Distribution Width 19 % High 10.5-15 Platelet Count 261 10^3/uL 150-450 Mean Platelet Volume 8 um3 7.4-10.4 Abs Neutrophils 3.4 10^3/uL 1.5-7.7 Abs Lymphocytes 0.5 10^3/uL Low 1.0-4.8 Abs Monocytes 0.4 10^3/uL 0-0.8 Abs Eosinophils 0 10^3/uL 0-0.6 Abs Basophils 0 10^3/uL 0-0.2 Abs Nucleated RBC 0 10^3/uL Granulocyte % 77.8 % 38-83 Lymphocyte % 11.3 % Low 25-47 Monocyte % 9.5 % High 0-7 Eosinophil % 0.8 % 0-6 Basophil % 0.6 % 0-2 Nucleated Red Blood Cells % 0 Comp Metabolic Panel 01/07/2018 Sodium 136 mmol/L 133-145 Potassium 4.1 mmol/L 3.5-5.0 Chloride 104 mmol/L 101-111 Co2 Carbon Dioxide 27 mmol/L 22-32 Anion Gap 5 mmol/L 2-11 Glucose 89 mg/dL 70-100 Blood Urea Nitrogen 15 mg/dL 6-24 Creatinine 0.66 mg/dL 0.51-0.95 BUN/Creatinine Ratio 22.7 High 8-20 Calcium 9.1 mg/dL 8.6-10.3 Total Protein 5.9 g/dL Low 6.4-8.9 Albumin 4.2 g/dL 3.2-5.2 Globulin 1.7 g/dL Low 2-4 Albumin/Globulin Ratio 2.5 1-3 Total Bilirubin 0.30 mg/dL 0.2-1.0 Alkaline Phosphatase 65 U/L 34-104 Alt 17 U/L 7-52 Ast 23 U/L 13-39 Egfr Non- 89.3 >60 Egfr 114.9 >60 58 Laboratory test finding 01/07/2018 Magnesium 2.1 mg/dL 1.9-2.7 59 Immunoglobulins Serum Quant 12/29/2017 Immunoglobulin G 290 mg/dL 767 - 1590 60 Immunoglobulin M <5 mg/dL 37 - 286 Immunoglobulin A 4 mg/dL 61 - 356 CBC Auto Diff 12/29/2017 White Blood Count 3.2 10^3/uL Low 3.5-10.8 Red Blood Count 3.82 10^6/uL Low 4.0-5.4 Hemoglobin 11.2 g/dL Low 12.0-16.0 Hematocrit 34 % Low 35-47 Mean Corpuscular Volume 88 fL 80-97 Mean Corpuscular Hemoglobin 29 pg 27-31 Mean Corpuscular HGB Conc 33 g/dL 31-36 Red Cell Distribution Width 19 % High 10.5-15 Platelet Count 227 10^3/uL 150-450 Mean Platelet Volume 8 um3 7.4-10.4 Abs Neutrophils 2.5 10^3/uL 1.5-7.7 Abs Lymphocytes 0.3 10^3/uL Low 1.0-4.8 Abs Monocytes 0.4 10^3/uL 0-0.8 Abs Eosinophils 0 10^3/uL 0-0.6 Abs Basophils 0 10^3/uL 0-0.2 Abs Nucleated RBC 0 10^3/uL Granulocyte % 76.1 % 38-83 Lymphocyte % 10.8 % Low 25-47 Monocyte % 11.2 % High 0-7 Eosinophil % 1.0 % 0-6 Basophil % 0.9 % 0-2 Nucleated Red Blood Cells % 0.1 Comp Metabolic Panel 12/29/2017 Sodium 137 mmol/L 133-145 Potassium 4.4 mmol/L 3.5-5.0 Chloride 103 mmol/L 101-111 Co2 Carbon Dioxide 26 mmol/L 22-32 Anion Gap 8 mmol/L 2-11 Glucose 84 mg/dL 70-100 Blood Urea Nitrogen 13 mg/dL 6-24 Creatinine 0.73 mg/dL 0.51-0.95 BUN/Creatinine Ratio 17.8 8-20 Calcium 9.3 mg/dL 8.6-10.3 Total Protein 5.7 g/dL Low 6.4-8.9 Albumin 4.1 g/dL 3.2-5.2 Globulin 1.6 g/dL Low 2-4 Albumin/Globulin Ratio 2.6 1-3 Total Bilirubin 0.40 mg/dL 0.2-1.0 Alkaline Phosphatase 49 U/L 34-104 Alt 16 U/L 7-52 Ast 24 U/L 13-39 Egfr Non- 79.5 >60 Egfr 102.3 >60 61 Laboratory test finding 12/29/2017 Magnesium 1.9 mg/dL 1.9-2.7 62 Rapid Influenza A & B 12/04/2017 Influenza A Molecular POSITIVE Negative 63 Molecular Influenza B Molecular NEGATIVE Negative Laboratory test 12/04/2017 Rapid Influenza A & B SEE RESULT BELOW 64 finding Antigen CBC Auto Diff 11/24/2017 White Blood Count 4.0 10^3/uL 3.5-10.8 Red Blood Count 3.52 10^6/uL Low 4.0-5.4 Hemoglobin 10.4 g/dL Low 12.0-16.0 Hematocrit 31 % Low 35-47 Mean Corpuscular Volume 88 fL 80-97 Mean Corpuscular Hemoglobin 30 pg 27-31 Mean Corpuscular HGB Conc 34 g/dL 31-36 Red Cell Distribution Width 18 % High 10.5-15 Platelet Count 109 10^3/uL Low 150-450 Mean Platelet Volume 9 um3 7.4-10.4 Abs Neutrophils 3.2 10^3/uL 1.5-7.7 Abs Lymphocytes 0.3 10^3/uL Low 1.0-4.8 Abs Monocytes 0.5 10^3/uL 0-0.8 Abs Eosinophils 0 10^3/uL 0-0.6 Abs Basophils 0 10^3/uL 0-0.2 Abs Nucleated RBC 0 10^3/uL Granulocyte % 80.0 % 38-83 Lymphocyte % 7.0 % Low 25-47 Monocyte % 12.4 % High 1-9 Eosinophil % 0.3 % 0-6 Basophil % 0.3 % 0-2 Nucleated Red Blood Cells % 0.8 Comp Metabolic Panel 11/24/2017 Sodium 137 mmol/L 133-145 Potassium 4.3 mmol/L 3.5-5.0 Chloride 104 mmol/L 101-111 Co2 Carbon Dioxide 27 mmol/L 22-32 Anion Gap 6 mmol/L 2-11 Glucose 75 mg/dL 70-100 Blood Urea Nitrogen 15 mg/dL 6-24 Creatinine 0.69 mg/dL 0.51-0.95 BUN/Creatinine Ratio 21.7 High 8-20 Calcium 9.0 mg/dL 8.6-10.3 Total Protein 5.4 g/dL Low 6.4-8.9 Albumin 3.7 g/dL 3.2-5.2 Globulin 1.7 g/dL Low 2-4 Albumin/Globulin Ratio 2.2 1-3 Total Bilirubin 0.30 mg/dL 0.2-1.0 Alkaline Phosphatase 49 U/L 34-104 Alt 18 U/L 7-52 Ast 23 U/L 13-39 Egfr Non- 84.9 >60 Egfr 109.1 >60 65 Laboratory test finding 11/24/2017 Magnesium 2.0 mg/dL 1.9-2.7 66 [place]/Lambda Free Light 11/24/2017 [place] Free Light Chain 30.4 mg/dL 67 Chains Ser Lambda Free Light Chain <0.0272 mg/dL 68 [place]/Lambda Free Light Chain >1000 69 Immunoglobulins Serum Quant 11/24/2017 Immunoglobulin G 282 mg/dL 767 - 1590 70 Immunoglobulin M <5 mg/dL 37 - 286 Immunoglobulin A 4 mg/dL 61 - 356 CBC Auto Diff 10/20/2017 White Blood Count 2.7 10^3/uL Low 3.5-10.8 Red Blood Count 3.65 10^6/uL Low 4.0-5.4 Hemoglobin 11.0 g/dL Low 12.0-16.0 Hematocrit 32 % Low 35-47 Mean Corpuscular Volume 88 fL 80-97 Mean Corpuscular Hemoglobin 30 pg 27-31 Mean Corpuscular HGB Conc 34 g/dL 31-36 Red Cell Distribution Width 17 % High 10.5-15 Platelet Count 238 10^3/uL 150-450 Mean Platelet Volume 9 um3 7.4-10.4 Abs Neutrophils 1.7 10^3/uL 1.5-7.7 Abs Lymphocytes 0.4 10^3/uL Low 1.0-4.8 Abs Monocytes 0.6 10^3/uL 0-0.8 Abs Eosinophils 0 10^3/uL 0-0.6 Abs Basophils 0 10^3/uL 0-0.2 Abs Nucleated RBC 0.01 10^3/uL Granulocyte % 62.1 % 38-83 Lymphocyte % 15.8 % Low 25-47 Monocyte % 20.7 % High 1-9 Eosinophil % 0.6 % 0-6 Basophil % 0.8 % 0-2 Nucleated Red Blood Cells % 0.3 Comp Metabolic Panel 10/20/2017 Sodium 132 mmol/L Low 133-145 Potassium 4.7 mmol/L 3.5-5.0 Chloride 99 mmol/L Low 101-111 Co2 Carbon Dioxide 27 mmol/L 22-32 Anion Gap 6 mmol/L 2-11 Glucose 80 mg/dL 70-100 Blood Urea Nitrogen 14 mg/dL 6-24 Creatinine 0.68 mg/dL 0.51-0.95 BUN/Creatinine Ratio 20.6 High 8-20 Calcium 8.9 mg/dL 8.6-10.3 Total Protein 5.8 g/dL Low 6.4-8.9 Albumin 4.0 g/dL 3.2-5.2 Globulin 1.8 g/dL Low 2-4 Albumin/Globulin Ratio 2.2 1-3 Total Bilirubin 0.40 mg/dL 0.2-1.0 Alkaline Phosphatase 48 U/L 34-104 Alt 26 U/L 7-52 Ast 29 U/L 13-39 Egfr Non- 86.3 >60 Egfr 111.0 >60 71 Laboratory test finding 10/20/2017 Magnesium 1.9 mg/dL 1.9-2.7 CBC Auto Diff 09/10/2017 White Blood Count 4.1 10^3/uL 3.5-10.8 Red Blood Count 3.15 10^6/uL Low 4.0-5.4 Hemoglobin 10.0 g/dL Low 12.0-16.0 Hematocrit 30 % Low 35-47 Mean Corpuscular Volume 94 fL 80-97 Mean Corpuscular Hemoglobin 32 pg High 27-31 Mean Corpuscular HGB Conc 34 g/dL 31-36 Red Cell Distribution Width 18 % High 10.5-15 Platelet Count 311 10^3/uL 150-450 Mean Platelet Volume 8 um3 7.4-10.4 Abs Neutrophils 3.0 10^3/uL 1.5-7.7 Abs Lymphocytes 0.5 10^3/uL Low 1.0-4.8 Abs Monocytes 0.5 10^3/uL 0-0.8 Abs Eosinophils 0 10^3/uL 0-0.6 Abs Basophils 0 10^3/uL 0-0.2 Abs Nucleated RBC 0 10^3/uL Granulocyte % 74.1 % 38-83 Lymphocyte % 12.9 % Low 25-47 Monocyte % 11.3 % High 1-9 Eosinophil % 0.6 % 0-6 Basophil % 1.1 % 0-2 Nucleated Red Blood Cells % 0.1 Comp Metabolic Panel 09/10/2017 Sodium 135 mmol/L 133-145 Potassium 4.7 mmol/L 3.5-5.0 Chloride 103 mmol/L 101-111 Co2 Carbon Dioxide 29 mmol/L 22-32 Anion Gap 3 mmol/L 2-11 Glucose 83 mg/dL 70-100 Blood Urea Nitrogen 15 mg/dL 6-24 Creatinine 0.67 mg/dL 0.51-0.95 BUN/Creatinine Ratio 22.4 High 8-20 Calcium 9.1 mg/dL 8.6-10.3 Total Protein 5.7 g/dL Low 6.4-8.9 Albumin 3.9 g/dL 3.2-5.2 Globulin 1.8 g/dL Low 2-4 Albumin/Globulin Ratio 2.2 1-3 Total Bilirubin 0.30 mg/dL 0.2-1.0 Alkaline Phosphatase 53 U/L 34-104 Alt 17 U/L 7-52 Ast 23 U/L 13-39 Egfr Non- 87.8 >60 Egfr 112.9 >60 72 Laboratory test finding 09/10/2017 Magnesium 1.9 mg/dL 1.9-2.7 CBC Auto Diff 06/09/2017 White Blood Count 1.9 10^3/uL Low 3.5-10.8 Red Blood Count 3.54 10^6/uL Low 4.0-5.4 Hemoglobin 10.4 g/dL Low 12.0-16.0 Hematocrit 32 % Low 35-47 Mean Corpuscular Volume 91 fL 80-97 Mean Corpuscular Hemoglobin 30 pg 27-31 Mean Corpuscular HGB Conc 32 g/dL 31-36 Red Cell Distribution Width 20 % High 10.5-15 Platelet Count 202 10^3/uL 150-450 Mean Platelet Volume 8 um3 7.4-10.4 Abs Neutrophils 0.8 10^3/uL Low 1.5-7.7 Abs Lymphocytes 0.5 10^3/uL Low 1.0-4.8 Abs Monocytes 0.5 10^3/uL 0-0.8 Abs Eosinophils 0 10^3/uL 0-0.6 Abs Basophils 0 10^3/uL 0-0.2 Abs Nucleated RBC 0.01 10^3/uL Granulocyte % 43.8 % 38-83 Lymphocyte % 27.8 % 25-47 Monocyte % 26.2 % High 1-9 Eosinophil % 0.8 % 0-6 Basophil % 1.4 % 0-2 Nucleated Red Blood Cells % 0.7 Comp Metabolic Panel 06/09/2017 Sodium 135 mmol/L 133-145 Potassium 4.3 mmol/L 3.5-5.0 Chloride 102 mmol/L 101-111 Co2 Carbon Dioxide 25 mmol/L 22-32 Anion Gap 8 mmol/L 2-11 Blood Urea Nitrogen 18 mg/dL 6-24 Creatinine 0.73 mg/dL 0.51-0.95 BUN/Creatinine Ratio 24.7 High 8-20 Calcium 9.0 mg/dL 8.6-10.3 Total Protein 5.6 g/dL Low 6.4-8.9 Albumin 4.0 g/dL 3.2-5.2 Globulin 1.6 g/dL Low 2-4 Albumin/Globulin Ratio 2.5 1-3 Total Bilirubin 0.40 mg/dL 0.2-1.0 Alkaline Phosphatase 44 U/L 34-104 Alt 17 U/L 7-52 Ast 20 U/L 13-39 Egfr Non- 79.8 >60 Egfr 102.6 >60 73 Protein Electrophoresis 06/09/2017 Total Protein(Pep) 5.7 g/dL 6.3 - 7.9 Albumin 3.4 g/dL 3.4-4.7 Alpha-1 Globulin 0.3 g/dL 0.1-0.3 Alpha-2 Globulin 1.0 g/dL 0.6-1.0 Beta Globulin 0.8 g/dL 0.7-1.2 Gamma Globulin 0.2 g/dL 0.6-1.6 Albumin/Globulin Ratio 1.45 Impression See Comment 74 Immunoglobulins Serum Quant 06/09/2017 Immunoglobulin G 155 mg/dL 767 - 1590 75 Immunoglobulin M <5 mg/dL 37 - 286 Immunoglobulin A 6 mg/dL 61 - 356 [place]/Lambda Free Light Chains Ser 06/09/2017 [place] Free Light Chain 181 mg/ dL 76 Lambda Free Light Chain 0.0326 mg/dL 77 [place]/Lambda Free Light Chain >1000 78 Laboratory test finding 06/09/2017 Glucose 87 mg/dL 70-100 79 Lipid Profile (Trig/Chol/HDL) 06/09/2017 Triglycerides 67 mg/dL <150 80 Cholesterol 210 mg/dL High <200 81 HDL Cholesterol 89.8 mg/dL >40 82 LDL Cholesterol 107 mg/dL <160 83 CBC Auto Diff 05/02/2016 White Blood Count 1.6 10^3/uL Low 3.5-10.8 84 Red Blood Count 3.11 10^6/uL Low 4.0-5.4 Hemoglobin 9.9 g/dL Low 12.0-16.0 Hematocrit 30 % Low 35-47 Mean Corpuscular Volume 97 fL 80-97 Mean Corpuscular Hemoglobin 32 pg High 27-31 Mean Corpuscular HGB Conc 33 g/dL 31-36 Red Cell Distribution Width 16 % High 10.5-15 Platelet Count 173 10^3/uL 150-450 Mean Platelet Volume 8 um3 7.4-10.4 Abs Neutrophils 0.7 10^3/uL Low 1.5-7.7 Abs Lymphocytes 0.5 10^3/uL Low 1.0-4.8 Abs Monocytes 0.3 10^3/uL 0-0.8 Abs Eosinophils 0 10^3/uL 0-0.6 Abs Basophils 0 10^3/uL 0-0.2 Abs Nucleated RBC 0 10^3/uL Granulocyte % 46.0 % 38-83 Lymphocyte % 30.4 % 25-47 Monocyte % 20.8 % High 1-9 Eosinophil % 2.1 % 0-6 Basophil % 0.7 % 0-2 Nucleated Red Blood Cells % 0.1 Iron & Iron Binding Capacity 04/24/2016 Iron 24 g/dL Low 50-212 Unsaturated Iron Binding 434 g/dL Total Iron Binding Capacity 458 g/dL High 250-450 % Iron Saturation 5 % Low 15-55 Laboratory test finding 04/24/2016 Ferritin 32.3 ng/mL 11-307 Lipid Profile (Trig/Chol/HDL) 05/28/2015 Triglycerides 41 mg/dL 85 Cholesterol 205 mg/dL 86 HDL Cholesterol 86.0 mg/dL 87 LDL Cholesterol 111 mg/dL 88 Laboratory test finding 05/28/2015 Vitamin D Total 25(Oh) 48.7 ng/mL 30- 50 1 REFERENCE VALUE 0.3300-1.94 2 REFERENCE VALUE 0.5700-2.63 3 REFERENCE VALUE 0.2600-1.65 Test Performed by: [place] [address] 4 Test Performed by: [place] [address] 5 Because ethnic data is not always readily available, this report includes an eGFR for both -Americans and non- Americans. The National Kidney Disease Education Program (NKDEP) does not endorse the use of the MDRD equation for patients that are not between the ages of 18 and 70, are , have extremes of body size, muscle mass, or nutritional status, or are non- or non-. According to the National Kid[employer] Foundation, irrespective of diagnosis, the stage of the disease is based on the level of kidney function: Stage Description GFR(mL/min/1.73 m(2)) 1 Kidney damage with normal or decreased GFR 90 2 Kidney damage with mild decrease in GFR 60-89 3 Moderate decrease in GFR 30-59 4 Severe decrease in GFR 15-29 5 Kidney failure <15 (or dialysis) 6 ORDERED 02/25/18 ENTERED 05/06/18 EXPIRES 08/27/18 7 Because ethnic data is not always readily available, this report includes an eGFR for both -Americans and non- Americans. The National Kidney Disease Education Program (NKDEP) does not endorse the use of the MDRD equation for patients that are not between the ages of 18 and 70, are , have extremes of body size, muscle mass, or nutritional status, or are non- or non-. According to the National Kidney Foundation, irrespective of diagnosis, the stage of the disease is based on the level of kidney function: Stage Description GFR(mL/min/1.73 m(2)) 1 Kidney damage with normal or decreased GFR 90 2 Kidney damage with mild decrease in GFR 60-89 3 Moderate decrease in GFR 30-59 4 Severe decrease in GFR 15-29 5 Kidney failure <15 (or dialysis) 8 Because ethnic data is not always readily available, this report includes an eGFR for both -Americans and non- Americans. The National Kidney Disease Education Program (NKDEP) does not endorse the use of the MDRD equation for patients that are not between the ages of 18 and 70, are , have extremes of body size, muscle mass, or nutritional status, or are non- or non-. According to the National Kidney Foundation, irrespective of diagnosis, the stage of the disease is based on the level of kidney function: Stage Description GFR(mL/min/1.73 m(2)) 1 Kidney damage with normal or decreased GFR 90 2 Kidney damage with mild decrease in GFR 60-89 3 Moderate decrease in GFR 30-59 4 Severe decrease in GFR 15-29 5 Kidney failure <15 (or dialysis) 9 RESULT: Hypogammaglobulinemia Test Performed by: [facility] [address] [place] [address] 10 Test Performed by: [facility] [address] [place] [address] 11 Because ethnic data is not always readily available, this report includes an eGFR for both -Americans and non- Americans. The National Kidney Disease Education Program (NKDEP) does not endorse the use of the MDRD equation for patients that are not between the ages of 18 and 70, are , have extremes of body size, muscle mass, or nutritional status, or are non- or non-. According to the National Kidney Foundation, irrespective of diagnosis, the stage of the disease is based on the level of kidney function: Stage Description GFR(mL/min/1.73 m(2)) 1 Kidney damage with normal or decreased GFR 90 2 Kidney damage with mild decrease in GFR 60-89 3 Moderate decrease in GFR 30-59 4 Severe decrease in GFR 15-29 5 Kidney failure <15 (or dialysis) 12 REFERENCE VALUE 0.3300-1.94 13 REFERENCE VALUE 0.5700-2.63 14 REFERENCE VALUE 0.2600-1.65 Test Performed by: [facility] [address] [place] [address] 15 ENTERED 01/23/2018 EXPIRES 07/26/2018 Q 4 WEEKS 16 Test Performed by: [facility] [address] [place] [address] 17 RESULT: Hypogammaglobulinemia Test Performed by: [facility] [address] [place] [address] 18 Because ethnic data is not always readily available, this report includes an eGFR for both -Americans and non- Americans. The National Kidney Disease Education Program (NKDEP) does not endorse the use of the MDRD equation for patients that are not between the ages of 18 and 70, are , have extremes of body size, muscle mass, or nutritional status, or are non- or non-. According to the National Kidney Foundation, irrespective of diagnosis, the stage of the disease is based on the level of kidney function: Stage Description GFR(mL/min/1.73 m(2)) 1 Kidney damage with normal or decreased GFR 90 2 Kidney damage with mild decrease in GFR 60-89 3 Moderate decrease in GFR 30-59 4 Severe decrease in GFR 15-29 5 Kidney failure <15 (or dialysis) 19 REFERENCE VALUE 0.3300-1.94 20 REFERENCE VALUE 0.5700-2.63 21 REFERENCE VALUE 0.2600-1.65 Test Performed by: [facility] [address] [place] [address] 22 STANDING ORDER Q WEEKLY ORDERED DATE 10/23/17 ENTERED DATE 10/24/17 EXPIRES 04/23/18 23 Because ethnic data is not always readily available, this report includes an eGFR for both -Americans and non- Americans. The National Kidney Disease Education Program (NKDEP) does not endorse the use of the MDRD equation for patients that are not between the ages of 18 and 70, are , have extremes of body size, muscle mass, or nutritional status, or are non- or non-. According to the National Kidney Foundation, irrespective of diagnosis, the stage of the disease is based on the level of kidney function: Stage Description GFR(mL/min/1.73 m(2)) 1 Kidney damage with normal or decreased GFR 90 2 Kidney damage with mild decrease in GFR 60-89 3 Moderate decrease in GFR 30-59 4 Severe decrease in GFR 15-29 5 Kidney failure <15 (or dialysis) 24 RESULT: Hypogammaglobulinemia Test Performed by: [address] [address] 25 Test Performed by: [address] [address] 26 REFERENCE VALUE 0.3300-1.94 27 REFERENCE VALUE 0.5700-2.63 28 REFERENCE VALUE 0.2600-1.65 Test Performed by: [address] [address] 29 Because ethnic data is not always readily available, this report includes an eGFR for both -Americans and non- Americans. The National Kidney Disease Education Program (NKDEP) does not endorse the use of the MDRD equation for patients that are not between the ages of 18 and 70, are , have extremes of body size, muscle mass, or nutritional status, or are non- or non-. According to the National Kidney Foundation, irrespective of diagnosis, the stage of the disease is based on the level of kidney function: Stage Description GFR(mL/min/1.73 m(2)) 1 Kidney damage with normal or decreased GFR 90 2 Kidney damage with mild decrease in GFR 60-89 3 Moderate decrease in GFR 30-59 4 Severe decrease in GFR 15-29 5 Kidney failure <15 (or dialysis) 30 ENTERED 01/23/2018 EXPIRES 07/26/2018 Q 4 WEEKS 31 REFERENCE VALUE [phone] 32 REFERENCE VALUE 0.5700-2.63 33 REFERENCE VALUE 0.2600-1.65 Test Performed by: [address] [id number] 34 Because ethnic data is not always readily available, this report includes an eGFR for both -Americans and non- Americans. The [employer] ([facility]) does not endorse the use of the MDRD equation for patients that are not between the ages of 18 and 70, are , have extremes of body size, muscle mass, or nutritional status, or are non- or non-. According to the [employer], irrespective of diagnosis, the stage of the disease is based on the level of kidney function: Stage Description GFR(mL/min/1.73 m(2)) 1 Kidney damage with normal or decreased GFR 90 2 Kidney damage with mild decrease in GFR 60-89 3 Moderate decrease in GFR 30-59 4 Severe decrease in GFR 15-29 5 Kidney failure <15 (or dialysis) 35 STANDING ORDER ENTERED 11/01/2017 EXPIRES 04/23/2018 36 Because ethnic data is not always readily available, this report includes an eGFR for both -Americans and non- Americans. The National [employer] ([facility]) does not endorse the use of the MDRD equation for patients that are not between the ages of 18 and 70, are , have extremes of body size, muscle mass, or nutritional status, or are non- or non-. According to the [employer], irrespective of diagnosis, the stage of the disease is based on the level of kidney function: Stage Description GFR(mL/min/1.73 m(2)) 1 Kidney damage with normal or decreased GFR 90 2 Kidney damage with mild decrease in GFR 60-89 3 Moderate decrease in GFR 30-59 4 Severe decrease in GFR 15-29 5 Kidney failure <15 (or dialysis) 37 STANDING ORDER ENTERED 11/01/2017 EXPIRES 04/23/2018 38 Because ethnic data is not always readily available, this report includes an eGFR for both -Americans and non- Americans. The National Kidney Disease Education Program (NKDEP) does not endorse the use of the MDRD equation for patients that are not between the ages of 18 and 70, are , have extremes of body size, muscle mass, or nutritional status, or are non- or non-. According to the National Kidney Foundation, irrespective of diagnosis, the stage of the disease is based on the level of kidney function: Stage Description GFR(mL/min/1.73 m(2)) 1 Kidney damage with normal or decreased GFR 90 2 Kidney damage with mild decrease in GFR 60-89 3 Moderate decrease in GFR 30-59 4 Severe decrease in GFR 15-29 5 Kidney failure <15 (or dialysis) 39 ENTERED 01/23/2018 EXPIRES 07/26/2018 Q 4 WEEKS 40 RESULT: Hypogammaglobulinemia Test Performed by: [facility] - [address] [address] 41 REFERENCE VALUE 0.3300-1.94 42 REFERENCE VALUE 0.5700-2.63 43 REFERENCE VALUE 0.2600-1.65 Test Performed by: [facility] [address] [place] [address] 44 Test Performed by: [facility] [address] [place] [address] 45 Because ethnic data is not always readily available, this report includes an eGFR for both -Americans and non- Americans. The National Kidney Disease Education Program (NKDEP) does not endorse the use of the MDRD equation for patients that are not between the ages of 18 and 70, are , have extremes of body size, muscle mass, or nutritional status, or are non- or non-. According to the National Kidney Foundation, irrespective of diagnosis, the stage of the disease is based on the level of kidney function: Stage Description GFR(mL/min/1.73 m(2)) 1 Kidney damage with normal or decreased GFR 90 2 Kidney damage with mild decrease in GFR 60-89 3 Moderate decrease in GFR 30-59 4 Severe decrease in GFR 15-29 5 Kidney failure <15 (or dialysis) 46 Because ethnic data is not always readily available, this report includes an eGFR for both -Americans and non- Americans. The National Kidney Disease Education Program (NKDEP) does not endorse the use of the MDRD equation for patients that are not between the ages of 18 and 70, are , have extremes of body size, muscle mass, or nutritional status, or are non- or non-. According to the National Kidney Foundation, irrespective of diagnosis, the stage of the disease is based on the level of kidney function: Stage Description GFR(mL/min/1.73 m(2)) 1 Kidney damage with normal or decreased GFR 90 2 Kidney damage with mild decrease in GFR 60-89 3 Moderate decrease in GFR 30-59 4 Severe decrease in GFR 15-29 5 Kidney failure <15 (or dialysis) 47 STANDING ORDER Q WEEKLY ORDERED DATE 10/23/17 ENTERED DATE 10/24/17 EXPIRES 04/23/18 48 Hypogammaglobulinemia To document continued presence of monoclonal protein, serum Monoclonal Protein Studies (MPSS) would be required. Test Performed by: [facility] [place] [address] [place] [address] 49 Test Performed by: [facility] - [address] [address] 50 REFERENCE VALUE 0.3300-1.94 51 REFERENCE VALUE 0.5700-2.63 52 REFERENCE VALUE 0.2600-1.65 Test Performed by: [address] [address] 53 Because ethnic data is not always readily available, this report includes an eGFR for both -Americans and non- Americans. The National Kidney Disease Education Program (NKDEP) does not endorse the use of the MDRD equation for patients that are not between the ages of 18 and 70, are , have extremes of body size, muscle mass, or nutritional status, or are non- or non-. According to the National Kidney Foundation, irrespective of diagnosis, the stage of the disease is based on the level of kidney function: Stage Description GFR(mL/min/1.73 m(2)) 1 Kidney damage with normal or decreased GFR 90 2 Kidney damage with mild decrease in GFR 60-89 3 Moderate decrease in GFR 30-59 4 Severe decrease in GFR 15-29 5 Kidney failure <15 (or dialysis) 54 Because ethnic data is not always readily available, this report includes an eGFR for both -Americans and non- Americans. The National Kidney Disease Education Program (NKDEP) does not endorse the use of the MDRD equation for patients that are not between the ages of 18 and 70, are , have extremes of body size, muscle mass, or nutritional status, or are non- or non-. According to the National Kidney Foundation, irrespective of diagnosis, the stage of the disease is based on the level of kidney function: Stage Description GFR(mL/min/1.73 m(2)) 1 Kidney damage with normal or decreased GFR 90 2 Kidney damage with mild decrease in GFR 60-89 3 Moderate decrease in GFR 30-59 4 Severe decrease in GFR 15-29 5 Kidney failure <15 (or dialysis) 55 STANDING ORDER ENTERED 11/01/2017 EXPIRES 04/23/2018 56 Because ethnic data is not always readily available, this report includes an eGFR for both -Americans and non- Americans. The National Kidney Disease Education Program (NKDEP) does not endorse the use of the MDRD equation for patients that are not between the ages of 18 and 70, are , have extremes of body size, muscle mass, or nutritional status, or are non- or non-. According to the National Kidney Foundation, irrespective of diagnosis, the stage of the disease is based on the level of kidney function: Stage Description GFR(mL/min/1.73 m(2)) 1 Kidney damage with normal or decreased GFR 90 2 Kidney damage with mild decrease in GFR 60-89 3 Moderate decrease in GFR 30-59 4 Severe decrease in GFR 15-29 5 Kidney failure <15 (or dialysis) 57 STANDING ORDER ENTERED 11/01/2017 EXPIRES 04/23/2018 58 Because ethnic data is not always readily available, this report includes an eGFR for both -Americans and non- Americans. The National Kidney Disease Education Program (NKDEP) does not endorse the use of the MDRD equation for patients that are not between the ages of 18 and 70, are , have extremes of body size, muscle mass, or nutritional status, or are non- or non-. According to the National Kidney Foundation, irrespective of diagnosis, the stage of the disease is based on the level of kidney function: Stage Description GFR(mL/min/1.73 m(2)) 1 Kidney damage with normal or decreased GFR 90 2 Kidney damage with mild decrease in GFR 60-89 3 Moderate decrease in GFR 30-59 4 Severe decrease in GFR 15-29 5 Kidney failure <15 (or dialysis) 59 STANDING ORDER Q WEEKLY ORDERED DATE 10/23/17 ENTERED DATE 10/24/17 EXPIRES 04/23/18 60 Test Performed by: [address] [address] 61 Because ethnic data is not always readily available, this report includes an eGFR for both -Americans and non- Americans. The National Kidney Disease Education Program (NKDEP) does not endorse the use of the MDRD equation for patients that are not between the ages of 18 and 70, are , have extremes of body size, muscle mass, or nutritional status, or are non- or non-. 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 SEE RESULT BELOW Name: ANISH VILLANUEVA : [address]: Frank Manzano MD Acct: [id number] Unit: [id number] AGE: 67 Location: [facility] Re12/04/17 SEX: F Status: REG REF SPEC: [id number] ANGELINA: 12/04/17-[address] [facility] [address]: Frank Manzano MD REQ: [id number] RECD: 12/04/17 STATUS: DANNY UNGER DR: Sunny Dc MD _ SOURCE: NASAL SPDESC: ORDERED: Flu A B Request Procedure Result Reported Site Rapid Influenza A B Request Final 12/04/17- 1321 ML Specimen received for Influenza A/B Molecular testing * ML - MAIN LAB ([facility]) . END OF REPORT * ML=Testing performed at Main Lab DEPARTMENT OF PATHOLOGY, [address] [place] [address] Lavelle Sol M.D. Director [facility] # [id number] 65 Because ethnic data is not always readily available, this report includes an eGFR for both -Americans and non- Americans. The National Kidney Disease Education Program (NKDEP) does not endorse the use of the MDRD equation for patients that are not between the ages of 18 and 70, are , have extremes of body size, muscle mass, or nutritional status, or are non- or non-. According to the National Kidney Foundation, irrespective of diagnosis, the stage of the disease is based on the level of kidney function: Stage Description GFR(mL/min/1.73 m(2)) 1 Kidney damage with normal or decreased GFR 90 2 Kidney damage with mild decrease in GFR 60-89 3 Moderate decrease in GFR 30-59 4 Severe decrease in GFR 15-29 5 Kidney failure <15 (or dialysis) 66 STANDING ORDER ENTERED 11/01/2017 EXPIRES 04/23/2018 67 REFERENCE VALUE 0.3300-1.94 68 REFERENCE VALUE 0.5700-2.63 69 REFERENCE VALUE 0.2600-1.65 Test Performed by: [place] [address] 70 Test Performed by: [place] [address] 71 Because ethnic data is not always readily available, this report includes an eGFR for both -Americans and non- Americans. The National Kidney Disease Education Program (NKDEP) does not endorse the use of the MDRD equation for patients that are not between the ages of 18 and 70, are , have extremes of body size, muscle mass, or nutritional status, or are non- or non-. According to the National Kidney Foundation, irrespective of diagnosis, the stage of the disease is based on the level of kidney function: Stage Description GFR(mL/min/1.73 m(2)) 1 Kidney damage with normal or decreased GFR 90 2 Kidney damage with mild decrease in GFR 60-89 3 Moderate decrease in GFR 30-59 4 Severe decrease in GFR 15-29 5 Kidney failure <15 (or dialysis) 72 Because ethnic data is not always readily available, this report includes an eGFR for both -Americans and non- Americans. The National Kidney Disease Education Program (NKDEP) does not endorse the use of the MDRD equation for patients that are not between the ages of 18 and 70, are , have extremes of body size, muscle mass, or nutritional status, or are non- or non-. According to the National Kidney Foundation, irrespective of diagnosis, the stage of the disease is based on the level of kidney function: Stage Description GFR(mL/min/1.73 m(2)) 1 Kidney damage with normal or decreased GFR 90 2 Kidney damage with mild decrease in GFR 60-89 3 Moderate decrease in GFR 30-59 4 Severe decrease in GFR 15-29 5 Kidney failure <15 (or dialysis) 73 Because ethnic data is not always readily available, this report includes an eGFR for both -Americans and non- Americans. The National Kidney Disease Education Program (NKDEP) does not endorse the use of the MDRD equation for patients that are not between the ages of 18 and 70, are , have extremes of body size, muscle mass, or nutritional status, or are non- or non-. According to the National Kidney Foundation, irrespective of diagnosis, the stage of the disease is based on the level of kidney function: Stage Description GFR(mL/min/1.73 m(2)) 1 Kidney damage with normal or decreased GFR 90 2 Kidney damage with mild decrease in GFR 60-89 3 Moderate decrease in GFR 30-59 4 Severe decrease in GFR 15-29 5 Kidney failure <15 (or dialysis) 74 RESULT: Hypogammaglobulinemia Test Performed by: [facility] [address] [place] [address] 75 Test Performed by: [facility] [address] [place] [address] 76 REFERENCE VALUE 0.3300-1.94 77 REFERENCE VALUE 0.5700-2.63 78 REFERENCE VALUE 0.2600-1.65 Test Performed by: [address] [address] 79 FASTING 80 Desirable <150 Borderline high 150-199 High 200-499 Very High >500 81 Desirable <200 Borderline high 200-239 High >239 82 Low <40 Desirable: 40-60 High: >60 83 Desirable: <100 mg/dL Near Optimal: 100-129 mg/dL Borderline High: 130-159 mg/dL High: 160-189 mg/dL Very High: >189 mg/dL 84 Consistent with previous results on 04/29/16. 85 Desirable <150 Borderline high 150-199 High 200-499 Very High >500 86 Desirable <200 Borderline high 200-239 High >239 87 Low <40 Desirable: 40-60 High: >60 88 Desirable: <100 mg/dL Near Optimal: 100-129 mg/dL Borderline High: 130-159 mg/dL High: 160-189 mg/dL Very High: >189 mg/dL Procedures Date CPT Code Description Status 04/28/2009 Colonoscopy Completed Encounters Type Date Location Provider CPT E/M Dx Office Visit 05/29/2018 1:00p Main Office Sunny Dc MD G0439 Z00.01 C90.00 F43.23 Office Visit 12/06/2017 12:40p [place] [address] B34.9 Office Visit 08/15/2017 12:00p [place] [address] H68.103 B34.9 Office Visit 05/28/2017 1:40p Main Office Sunny Dc MD G0439 Z00.01 Office Visit 05/16/2016 2:40p [place] [address] Z00.01 Office Visit 01/18/2016 1:00p [place] [address] C90.00 F43.23 Office Visit 11/29/2015 2:40p [place] [address] F43.23 C90.02 Office Visit 05/12/2015 1:00p [place] [address] V70.0 V76.19 737.30 203.00 272.0 309.0 Plan of Care 06/26/2018 - Sunny Dc, [id number] Other specified disorders of bone, other siteNew Xrays:Ribs,Unilat+Chest,PA View,Min 3 V LComments:Tests recommended further plan of care pending availability of results.C90.00 Multiple myeloma not having achieved remission
[2018-06-29 14:37] VITALS: BP 130/89
--- NOTE | 2018-06-29 15:25 | UC ---
Skin Complaint HPI - HPI Summary HPI Summary: 67 y/o female presents to the urgent care c/o tingling and burning sensation w/ a discrete rash in her left forearm since this morning. Pt reports PMHX MM and her Oncologist advised her to stop Valtrex PO about 2 months ago since she was changed on her chemotherapy. Pt feels her rash feels like she usually gets shingles since she had it in the past 2X. Pt denies fever, ELIZALDE, SOB, pain, chest pain, abdominal pain, B/V/D. - History of Current Complaint Chief Complaint: UCGeneralIllness Time Seen by Provider: 06/29/18 15:11 Stated Complaint: RASH Hx Obtained From: Patient ?: Yes Pain Intensity: 0 - Allergy/Home Medications Allergies/Adverse Reactions: Allergies Allergy/AdvReac Type Severity Reaction Status Date / Time gadoteridol [From Prohance] Allergy Mild Rash Verified 06/29/18 14:32 PMH/Surg Hx/FS Hx/Imm Hx - Surgical History Surgical History: Yes Surgery Procedure, Year, and Place: STEM CELL TRANSPLANT 2011, TONSILECTOMY AGE 7, LYPOMA REMOVAL 1971, FIBROADENOMA REMOVED, RT FOOT BUNIONECTOMY - Social History Alcohol Use: None Substance Use Type: None Smoking Status (MU): Never Smoked Tobacco Physical Exam Vital Signs: Initial Vital Signs Temp 98.5 F 06/29/18 14:34 Pulse 66 06/29/18 14:34 Resp 20 06/29/18 14:34 BP 130/89 06/29/18 14:34 Pulse Ox 100 06/29/18 14:34 Course/Dx - Course Course Of Treatment: 67 y/o female presents to the urgent care c/o tingling and burning sensation w/ a discrete rash in her left forearm since this morning. Pt reports PMHX MM and her Oncologist advised her to stop Valtrex PO about 2 months ago since she was changed on her chemotherapy. Pt feels her rash feels like she usually gets shingles since she had it in the past 2X. Pt denies fever , ELIZALDE, SOB, pain, chest pain, abdominal pain, N/V/D. - Differential Diagnoses - Skin Complaint Differential Diagnoses: Cellulitis, Contact Dermatitis, Impetigo, MRSA, Urticaria, Varicella Zoster - Diagnoses Provider Diagnoses: 1- left arm Herpes Zoster Discharge - Discharge Plan Condition: Stable Disposition: HOME Prescriptions: ValACYclovir (*) [Valtrex 1 GM(*)] 1 gm PO Q8HR #21 tab Patient Education Materials: Roland (ED) Referrals: Sunny Dc MD [Primary Care Provider] - 3 Days Additional Instructions: 1- Please take Valtrex PO as directed . 2-Please take Tylenol PO q4-6hrs prn as instructed if you develop pain. Increase fluid intake, eat well, rest and avoid strenuous exercise 3-If symptoms do not improve or worsen please return to the urgent care or f/u with your PCP in 3 days for further evaluation and treatment. - Billing Disposition and Condition Condition: STABLE Disposition: Home
--- NOTE | 2018-06-30 09:58 | UC ---
Discharge - Sign-Out/Discharge Documenting (check all that apply): Post-Discharge Follow Up All imaging exams completed and their final reports reviewed: No Studies - Discharge Plan Condition: Stable Disposition: HOME Prescriptions: ValACYclovir (*) [Valtrex 1 GM(*)] 1 gm PO Q8HR #21 tab Patient Education Materials: Roland (ED) Referrals: Sunny Dc MD [Primary Care Provider] - 3 Days Additional Instructions: 1- Please take Valtrex PO as directed . 2-Please take Tylenol PO q4-6hrs prn as instructed if you develop pain. Increase fluid intake, eat well, rest and avoid strenuous exercise 3-If symptoms do not improve or worsen please return to the urgent care or f/u with your PCP in 3 days for further evaluation and treatment. - Billing Disposition and Condition Condition: STABLE Disposition: Home
== END 2018-06-29 15:45 | disposition home or self-care (01) ==
LOC: UCEAST 14:24
DX: B02.9 Zoster without complications (principal); C90.00 Multiple myeloma not having achieved remission; Z88.8 Allergy status to other drugs, medicaments and biological substances
CPT/HCPCS: 99212; G0463

== ENCOUNTER 2023-05-08 08:56 | Inpatient (IN) ==
[2023-05-08] MEDS ORDERED: Enoxaparin 40 MG/0.4 ML SYR SUBCUT SCH (13:30)
[2023-05-08] MEDS ORDERED: Acetaminophen IV 1 GM/100ML 1,000 MG/100 ML BAG IV ONE (13:30)
[2023-05-08] MEDS ORDERED: Dexamethasone IV 4 MG/ML VIAL 1 ml VIAL IV SLOW PU ONE (13:30)
[2023-05-08] MEDS ORDERED: NS 0.9% 1000 ml BAG 1,000 ML IV SCH (13:30)
[2023-05-08 13:46] LABS: ABS Lymphocytes 0.4 10^3/uL (1.0-4.8); ABS Monocytes 0.4 10^3/uL (0.0-0.9); ABS Neutrophils 2.3 10^3/uL (1.5-7.6); Eosinophil % 0.7 %; Hematocrit 32.9 % (35-45); Hemoglobin 11.3 g/dL (11.5-14.3); Lymphocyte % 12.2 %; Mean Corpuscular Hemoglobin 31.7 pg (27-33); Mean Corpuscular Hgb Conc 34.5 g/dL (31-36); Mean Corpuscular Volume 92.1 fL (80-97); Mean Platelet Volume 8.4 fL (7.5-11.2); Nucleated Red Blood Cells % 0.1 /100 WBC (0.0-0.4); Platelet Count 176 10^3/uL (150-450); Red Blood Count 3.57 10^6/uL (3.63-4.92); Red Cell Distribution Width 19.4 % (12-17); White Blood Count 3.1 10^3/uL (3.8-11.8)
[2023-05-08 14:04] LABS: Albumin 4.3 g/dL (3.2-5.2); Calcium 9.7 mg/dL (8.6-10.3); Creatinine, Serum 0.88 mg/dL (0.51-0.95); Globulin 2.1 g/dL (2-4); Magnesium 2.1 mg/dL (1.9-2.7); Potassium 3.7 mmol/L (3.5-5.0); Total Bilirubin 0.4 mg/dL (0.2-1.0); Total Protein 6.4 g/dL (6.4-8.9); eGFR CKD-EPI 69.8 (>60)
[2023-05-08] MEDS ORDERED: [UNRECOGNIZED DRUG - OTHER] SUBCUT ONE (14:30)
[2023-05-09 08:09] LABS: ABS Lymphocytes 0.2 10^3/uL (1.0-4.8); ABS Monocytes 0.1 10^3/uL (0.0-0.9); ABS Nucleated RBC 0.01 10^3/ul; Eosinophil % 0.1 %; Hematocrit 32.8 % (35-45); Hemoglobin 11.4 g/dL (11.5-14.3); Lymphocyte % 5.8 %; Mean Corpuscular Hemoglobin 32.3 pg (27-33); Mean Corpuscular Hgb Conc 34.8 g/dL (31-36); Mean Corpuscular Volume 92.9 fL (80-97); Mean Platelet Volume 8.3 fL (7.5-11.2); Nucleated Red Blood Cells % 0.3 /100 WBC (0.0-0.4); Platelet Count 181 10^3/uL (150-450); Red Blood Count 3.53 10^6/uL (3.63-4.92); White Blood Count 3.3 10^3/uL (3.8-11.8)
[2023-05-09 08:36] LABS: Albumin/Globulin Ratio 2.9 (1-3); Calcium 9.4 mg/dL (8.6-10.3); Creatinine, Serum 0.92 mg/dL (0.51-0.95); Globulin 1.4 g/dL (2-4); Potassium 3.9 mmol/L (3.5-5.0); Total Bilirubin 0.3 mg/dL (0.2-1.0); Total Protein 5.4 g/dL (6.4-8.9); eGFR CKD-EPI 66.2 (>60)
[2023-05-09] MEDS ORDERED: Tocilizumab 200 MG/10 ML 10 ml VIAL IVPB PRN (10:34)
[2023-05-09] MEDS: TOCILIZUMAB IVPB PRN (23:20)
[2023-05-09] MEDS: NS 0.9% IVPB PRN (23:20)
[2023-05-10 04:11] LABS: ABS Lymphocytes 0.1 10^3/uL (1.0-4.8); ABS Monocytes 0.1 10^3/uL (0.0-0.9); ABS Neutrophils 1.7 10^3/uL (1.5-7.6); ABS Nucleated RBC 0.01 10^3/ul; Eosinophil % 0.3 %; Hematocrit 29.2 % (35-45); Hemoglobin 10.2 g/dL (11.5-14.3); Lymphocyte % 6.3 %; Mean Corpuscular Hgb Conc 34.8 g/dL (31-36); Mean Platelet Volume 7.7 fL (7.5-11.2); Nucleated Red Blood Cells % 0.4 /100 WBC (0.0-0.4); Platelet Count 149 10^3/uL (150-450); Red Blood Count 3.17 10^6/uL (3.63-4.92); Red Cell Distribution Width 19.4 % (12-17); White Blood Count 1.9 10^3/uL (3.8-11.8)
[2023-05-10 04:30] LABS: Albumin 3.9 g/dL (3.2-5.2); Albumin/Globulin Ratio 2.3 (1-3); Calcium 9.3 mg/dL (8.6-10.3); Creatinine, Serum 0.98 mg/dL (0.51-0.95); Globulin 1.7 g/dL (2-4); Magnesium 1.9 mg/dL (1.9-2.7); Potassium 3.9 mmol/L (3.5-5.0); Total Bilirubin 0.3 mg/dL (0.2-1.0); Total Protein 5.6 g/dL (6.4-8.9); eGFR CKD-EPI 61.3 (>60)
[2023-05-11 05:58] LABS: ABS Eosinophils 0.1 10^3/uL (0.0-0.5); ABS Lymphocytes 0.2 10^3/uL (1.0-4.8); ABS Monocytes 0.2 10^3/uL (0.0-0.9); ABS Neutrophils 1.2 10^3/uL (1.5-7.6); Eosinophil % 3.3 %; Hematocrit 30.5 % (35-45); Hemoglobin 10.7 g/dL (11.5-14.3); Lymphocyte % 13.1 %; Mean Corpuscular Hgb Conc 35.1 g/dL (31-36); Mean Corpuscular Volume 91.4 fL (80-97); Mean Platelet Volume 7.7 fL (7.5-11.2); Nucleated Red Blood Cells % 0.1 /100 WBC (0.0-0.4); Platelet Count 151 10^3/uL (150-450); Red Blood Count 3.34 10^6/uL (3.63-4.92); Red Cell Distribution Width 19.7 % (12-17); White Blood Count 1.7 10^3/uL (3.8-11.8)
[2023-05-11 06:18] LABS: Calcium 9.1 mg/dL (8.6-10.3); Creatinine, Serum 0.88 mg/dL (0.51-0.95); Potassium 3.8 mmol/L (3.5-5.0); eGFR CKD-EPI 69.8 (>60)
[2023-05-11] MEDS ORDERED: Dexamethasone IV 4 MG/ML 5 ML VIAL (20 MG) IVPB ONE (13:00)
[2023-05-11] MEDS ORDERED: Acetaminophen IV 1 GM/100ML 1,000 MG/100 ML BAG IV ONE (13:06)
[2023-05-11] MEDS ORDERED: [UNRECOGNIZED DRUG - OTHER] SUBCUT ONE (14:15)
[2023-05-12 05:28] LABS: ABS Lymphocytes 0.3 10^3/uL (1.0-4.8); ABS Monocytes 0.2 10^3/uL (0.0-0.9); ABS Neutrophils 2.3 10^3/uL (1.5-7.6); Eosinophil % 0.1 %; Hematocrit 30.4 % (35-45); Hemoglobin 10.7 g/dL (11.5-14.3); Lymphocyte % 9.7 %; Mean Corpuscular Hgb Conc 35.3 g/dL (31-36); Mean Corpuscular Volume 90.6 fL (80-97); Mean Platelet Volume 7.7 fL (7.5-11.2); Nucleated Red Blood Cells % 0.1 /100 WBC (0.0-0.4); Platelet Count 153 10^3/uL (150-450); Red Blood Count 3.35 10^6/uL (3.63-4.92); Red Cell Distribution Width 19.2 % (12-17); White Blood Count 2.8 10^3/uL (3.8-11.8)
[2023-05-12 05:47] LABS: Albumin 3.9 g/dL (3.2-5.2); Albumin/Globulin Ratio 2.2 (1-3); Calcium 9.2 mg/dL (8.6-10.3); Creatinine, Serum 0.88 mg/dL (0.51-0.95); Globulin 1.8 g/dL (2-4); Potassium 3.7 mmol/L (3.5-5.0); Total Bilirubin 0.3 mg/dL (0.2-1.0); Total Protein 5.7 g/dL (6.4-8.9); eGFR CKD-EPI 69.8 (>60)
[2023-05-12] MEDS ORDERED: Acetaminophen IV 1 GM/100ML 1,000 MG/100 ML BAG IV ONE (13:00)
[2023-05-13 16:00] LABS: ABS Eosinophils 0.1 10^3/uL (0.0-0.5); ABS Lymphocytes 0.3 10^3/uL (1.0-4.8); ABS Monocytes 0.3 10^3/uL (0.0-0.9); ABS Neutrophils 2.3 10^3/uL (1.5-7.6); Eosinophil % 1.9 %; Hematocrit 32.5 % (35-45); Hemoglobin 11.3 g/dL (11.5-14.3); Lymphocyte % 9.1 %; Mean Corpuscular Hgb Conc 34.7 g/dL (31-36); Mean Corpuscular Volume 92.5 fL (80-97); Mean Platelet Volume 8.1 fL (7.5-11.2); Nucleated Red Blood Cells % 0.1 /100 WBC (0.0-0.4); Platelet Count 178 10^3/uL (150-450); Red Blood Count 3.51 10^6/uL (3.63-4.92); Red Cell Distribution Width 19.3 % (12-17); White Blood Count 2.9 10^3/uL (3.8-11.8)
[2023-05-13] MEDS: NS 0.9% IVPB PRN (16:14)
[2023-05-13] MEDS: TOCILIZUMAB IVPB PRN (16:14)
[2023-05-13 16:17] LABS: Albumin 4.3 g/dL (3.2-5.2); Albumin/Globulin Ratio 2.3 (1-3); C Reactive Protein 1.95 mg/L (<8.01); Calcium 9.8 mg/dL (8.6-10.3); Creatinine, Serum 0.92 mg/dL (0.51-0.95); Globulin 1.9 g/dL (2-4); Potassium 4.3 mmol/L (3.5-5.0); Total Bilirubin 0.3 mg/dL (0.2-1.0); Total Protein 6.2 g/dL (6.4-8.9); eGFR CKD-EPI 66.2 (>60)
[2023-05-13 19:01] LABS: Ferritin 395.1 ng/mL (11-307)
[2023-05-14] MEDS ORDERED: Dexamethasone IV 4 MG/ML VIAL 1 ml VIAL IV SLOW PU ONE (13:00)
[2023-05-14] MEDS ORDERED: Acetaminophen IV 1 GM/100ML 1,000 MG/100 ML BAG IV ONE (13:00)
[2023-05-14] MEDS ORDERED: [UNRECOGNIZED DRUG - OTHER] SUBCUT ONE (14:00)
[2023-05-15 06:28] LABS: Hematocrit 33.6 % (35-45); Hemoglobin 11.8 g/dL (11.5-14.3); Mean Corpuscular Hemoglobin 32.5 pg (27-33); Mean Corpuscular Hgb Conc 35.1 g/dL (31-36); Mean Corpuscular Volume 92.6 fL (80-97); Mean Platelet Volume 8.1 fL (7.5-11.2); Platelet Count 193 10^3/uL (150-450); Red Blood Count 3.63 10^6/uL (3.63-4.92); Red Cell Distribution Width 19.1 % (12-17); White Blood Count 3.6 10^3/uL (3.8-11.8)
[2023-05-15 06:48] LABS: Albumin/Globulin Ratio 2.1 (1-3); Calcium 9.6 mg/dL (8.6-10.3); Creatinine, Serum 0.94 mg/dL (0.51-0.95); Direct Bilirubin 0.1 mg/dL (0.03-0.18); Globulin 1.9 g/dL (2-4); Indirect Bilirubin 0.2 mg/dL (0.3-1.0); Total Bilirubin 0.3 mg/dL (0.2-1.0); Total Protein 5.9 g/dL (6.4-8.9); eGFR CKD-EPI 64.5 (>60)
[2023-05-16 06:17] LABS: ABS Eosinophils 0.1 10^3/uL (0.0-0.5); ABS Lymphocytes 0.3 10^3/uL (1.0-4.8); ABS Monocytes 0.3 10^3/uL (0.0-0.9); ABS Neutrophils 1.4 10^3/uL (1.5-7.6); Hematocrit 30.8 % (35-45); Hemoglobin 10.8 g/dL (11.5-14.3); Lymphocyte % 13.1 %; Mean Corpuscular Hemoglobin 32.4 pg (27-33); Mean Corpuscular Hgb Conc 35.2 g/dL (31-36); Mean Platelet Volume 7.8 fL (7.5-11.2); Nucleated Red Blood Cells % 0.1 /100 WBC (0.0-0.4); Platelet Count 180 10^3/uL (150-450); Red Blood Count 3.35 10^6/uL (3.63-4.92); Red Cell Distribution Width 18.8 % (12-17); White Blood Count 2.1 10^3/uL (3.8-11.8)
[2023-05-16 06:39] LABS: Calcium 9.6 mg/dL (8.6-10.3); Creatinine, Serum 0.95 mg/dL (0.51-0.95); eGFR CKD-EPI 63.7 (>60)
[2023-05-16 15:07] VITALS: BP 142/70
== END 2023-05-16 13:36 | disposition home or self-care (01) | DRG 846 ==
LOC: CHOA 08:56 → ICU 12:53
PROVIDERS: ADMIT Internal Medicine Hematology & Oncology; ATTEND Internal Medicine Hematology & Oncology

== ENCOUNTER 2023-08-10 08:17 | Inpatient (IN) ==
[~2023-08-10 08:17] MED LIST: [UNRECOGNIZED DRUG - OTHER] SUBCUT SCH
[2023-08-10] MEDS ORDERED: Tocilizumab 200 MG/10 ML 10 ml VIAL IVPB PRN (09:32)
[2023-08-10 10:05] LABS: ABS Lymphocytes 0.2 10^3/uL (1.0-4.8); ABS Monocytes 0.1 10^3/uL (0.0-0.9); ABS Neutrophils 2.6 10^3/uL (1.5-7.6); ABS Nucleated RBC 0.01 10^3/ul; Eosinophil % 0.1 %; Hematocrit 26.5 % (35-45); Hemoglobin 9.4 g/dL (11.5-14.3); Lymphocyte % 5.9 %; Mean Corpuscular Hemoglobin 31.2 pg (27-33); Mean Corpuscular Hgb Conc 35.3 g/dL (31-36); Mean Corpuscular Volume 88.4 fL (80-97); Mean Platelet Volume 8.7 fL (7.5-11.2); Nucleated Red Blood Cells % 0.2 %/100WBC (0.0-0.8); Platelet Count 63 10^3/uL (150-450); Red Cell Distribution Width 15.4 % (12-17)
[2023-08-10 10:16] LABS: Albumin 3.2 g/dL (3.2-5.2); Albumin/Globulin Ratio 1.6 (1-3); Creatinine, Serum 2.12 mg/dL (0.51-0.95); Magnesium 2.2 mg/dL (1.9-2.7); Potassium 4.1 mmol/L (3.5-5.0); Total Bilirubin 0.6 mg/dL (0.2-1.0); Total Protein 5.2 g/dL (6.4-8.9); eGFR CKD-EPI 24.1 (>60)
[2023-08-10] MEDS ORDERED: Dexamethasone IV 4 MG/ML 5 ML VIAL (20 MG) IVPB ONE (12:00)
[2023-08-10] MEDS ORDERED: Acetaminophen IV 1 GM/100ML 1,000 MG/100 ML BAG IV ONE (12:00)
[2023-08-10] MEDS ORDERED: NS 0.9% IVPB PRN (13:17)
[2023-08-10] MEDS ORDERED: TOCILIZUMAB IVPB PRN (13:17)
[2023-08-10] MEDS ORDERED: [UNRECOGNIZED DRUG - OTHER] SUBCUT ONE (14:00)
[2023-08-10] MEDS: Enoxaparin 30 MG/0.3 ML SYR SUBCUT SCH (16:57)
[2023-08-10] MEDS: Cholecalciferol (VIT D3) 1,000 unit TAB PO SCH (22:17)
[2023-08-10] MEDS ORDERED: Ondansetron 4 mg VIAL 2 MG/ML 2 ml VIAL IV ONE (23:58)
[2023-08-11 05:12] LABS: ABS Lymphocytes 0.3 10^3/uL (1.0-4.8); ABS Monocytes 0.1 10^3/uL (0.0-0.9); ABS Neutrophils 2.6 10^3/uL (1.5-7.6); ABS Nucleated RBC 0.01 10^3/ul; Eosinophil % 0.1 %; Hematocrit 27.2 % (35-45); Hemoglobin 9.8 g/dL (11.5-14.3); Lymphocyte % 9.5 %; Mean Corpuscular Hemoglobin 31.9 pg (27-33); Mean Corpuscular Hgb Conc 36.1 g/dL (31-36); Mean Corpuscular Volume 88.5 fL (80-97); Mean Platelet Volume 8.9 fL (7.5-11.2); Nucleated Red Blood Cells % 0.2 %/100WBC (0.0-0.8); Platelet Count 62 10^3/uL (150-450); Red Blood Count 3.07 10^6/uL (3.63-4.92); Red Cell Distribution Width 15.3 % (12-17)
[2023-08-11 05:26] LABS: Albumin 3.2 g/dL (3.2-5.2); Albumin/Globulin Ratio 1.6 (1-3); Creatinine, Serum 2.01 mg/dL (0.51-0.95); Magnesium 2.2 mg/dL (1.9-2.7); Phosphorus 3.8 mg/dL (2.5-5.0); Potassium 4.2 mmol/L (3.5-5.0); Total Bilirubin 0.5 mg/dL (0.2-1.0); Total Protein 5.2 g/dL (6.4-8.9); eGFR CKD-EPI 25.7 (>60)
[2023-08-11] MEDS: Enoxaparin 30 MG/0.3 ML SYR SUBCUT SCH (12:43)
[2023-08-11] MEDS ORDERED: Dexamethasone IV 4 MG/ML VIAL 1 ml VIAL IV SLOW PU ONE (20:48)
[2023-08-11] MEDS: Cholecalciferol (VIT D3) 1,000 unit TAB PO SCH (23:04)
[2023-08-12 05:39] LABS: ABS Lymphocytes 0.2 10^3/uL (1.0-4.8); ABS Monocytes 0.1 10^3/uL (0.0-0.9); ABS Neutrophils 2.2 10^3/uL (1.5-7.6); Eosinophil % 0.2 %; Hematocrit 25.9 % (35-45); Hemoglobin 9.4 g/dL (11.5-14.3); Lymphocyte % 8.4 %; Mean Corpuscular Hemoglobin 31.9 pg (27-33); Mean Corpuscular Hgb Conc 36.3 g/dL (31-36); Mean Platelet Volume 9.1 fL (7.5-11.2); Platelet Count 63 10^3/uL (150-450); Red Blood Count 2.95 10^6/uL (3.63-4.92); White Blood Count 2.5 10^3/uL (3.8-11.8)
[2023-08-12 05:40] LABS: Albumin 3.1 g/dL (3.2-5.2); Calcium 8.8 mg/dL (8.6-10.3); Potassium 4.2 mmol/L (3.5-5.0); Total Bilirubin 0.5 mg/dL (0.2-1.0)
[2023-08-12 05:46] LABS: Albumin/Globulin Ratio 1.6 (1-3); Creatinine, Serum 2.18 mg/dL (0.51-0.95); Total Protein 5.1 g/dL (6.4-8.9); eGFR CKD-EPI 23.3 (>60)
[2023-08-12] MEDS ORDERED: Loperamide LIQ 2 MG/15 ML UDC PO ONE (12:39)
[2023-08-12] MEDS: Enoxaparin 30 MG/0.3 ML SYR SUBCUT SCH (12:58)
[2023-08-12] MEDS: Cholecalciferol (VIT D3) 1,000 unit TAB PO SCH (20:56)
[2023-08-13 05:35] LABS: Albumin/Globulin Ratio 1.6 (1-3); Calcium 8.8 mg/dL (8.6-10.3); Creatinine, Serum 2.33 mg/dL (0.51-0.95); Globulin 1.9 g/dL (2-4); Magnesium 2.1 mg/dL (1.9-2.7); Total Bilirubin 0.5 mg/dL (0.2-1.0); Total Protein 4.9 g/dL (6.4-8.9); eGFR CKD-EPI 21.6 (>60)
[2023-08-13 05:45] LABS: ABS Lymphocytes 0.1 10^3/uL (1.0-4.8); ABS Monocytes 0.1 10^3/uL (0.0-0.9); ABS Neutrophils 1.7 10^3/uL (1.5-7.6); Eosinophil % 0.6 %; Hematocrit 23.9 % (35-45); Hemoglobin 8.6 g/dL (11.5-14.3); Lymphocyte % 7.6 %; Mean Corpuscular Hemoglobin 31.8 pg (27-33); Mean Corpuscular Hgb Conc 36.2 g/dL (31-36); Mean Corpuscular Volume 88.1 fL (80-97); Mean Platelet Volume 8.9 fL (7.5-11.2); Nucleated Red Blood Cells % 0.1 %/100WBC (0.0-0.8); Platelet Count 57 10^3/uL (150-450); Red Blood Count 2.71 10^6/uL (3.63-4.92); Red Cell Distribution Width 15.3 % (12-17)
[2023-08-13] MEDS ORDERED: Dexamethasone IV 4 MG/ML VIAL 1 ml VIAL IV SLOW PU ONE (12:15)
[2023-08-13] MEDS ORDERED: Acetaminophen IV 1 GM/100ML 1,000 MG/100 ML BAG IV ONE (12:15)
[2023-08-13] MEDS ORDERED: [UNRECOGNIZED DRUG - OTHER] SUBCUT ONE (13:15)
[2023-08-13] MEDS: Enoxaparin 30 MG/0.3 ML SYR SUBCUT SCH (13:22)
[2023-08-13] MEDS ORDERED: Ondansetron 4 mg VIAL 2 MG/ML 2 ml VIAL IV ONE (13:33)
[2023-08-13] MEDS: Cholecalciferol (VIT D3) 1,000 unit TAB PO SCH (21:16)
[2023-08-14 05:56] LABS: ABS Lymphocytes 0.1 10^3/uL (1.0-4.8); Hematocrit 25.6 % (35-45); Hemoglobin 9.2 g/dL (11.5-14.3); Lymphocyte % 3.1 %; Mean Corpuscular Hemoglobin 31.8 pg (27-33); Mean Corpuscular Hgb Conc 35.9 g/dL (31-36); Mean Corpuscular Volume 88.7 fL (80-97); Mean Platelet Volume 8.9 fL (7.5-11.2); Nucleated Red Blood Cells % 0.2 %/100WBC (0.0-0.8); Platelet Count 59 10^3/uL (150-450); Red Blood Count 2.89 10^6/uL (3.63-4.92); Red Cell Distribution Width 15.2 % (12-17)
[2023-08-14 06:07] LABS: Albumin/Globulin Ratio 1.4 (1-3); Calcium 9.1 mg/dL (8.6-10.3); Creatinine, Serum 2.35 mg/dL (0.51-0.95); Globulin 2.1 g/dL (2-4); Total Bilirubin 0.5 mg/dL (0.2-1.0); Total Protein 5.1 g/dL (6.4-8.9); eGFR CKD-EPI 21.3 (>60)
[2023-08-14] MEDS ORDERED: Tocilizumab 200 MG/10 ML 10 ml VIAL IVPB ONE (10:41)
[2023-08-14] MEDS: Enoxaparin 30 MG/0.3 ML SYR SUBCUT SCH (12:52)
[2023-08-14] MEDS: Cholecalciferol (VIT D3) 1,000 unit TAB PO SCH (21:37)
[2023-08-15 05:27] LABS: ABS Neutrophils 1.6 10^3/uL (1.5-7.6); Eosinophil % 1.2 %; Hematocrit 24.2 % (35-45); Hemoglobin 8.9 g/dL (11.5-14.3); Lymphocyte % 2.5 %; Mean Corpuscular Hemoglobin 32.5 pg (27-33); Mean Corpuscular Hgb Conc 36.8 g/dL (31-36); Mean Corpuscular Volume 88.3 fL (80-97); Mean Platelet Volume 8.9 fL (7.5-11.2); Nucleated Red Blood Cells % 0.1 %/100WBC (0.0-0.8); Platelet Count 54 10^3/uL (150-450); Red Blood Count 2.74 10^6/uL (3.63-4.92); Red Cell Distribution Width 15.4 % (12-17); White Blood Count 1.7 10^3/uL (3.8-11.8)
[2023-08-15 05:45] LABS: Albumin 2.9 g/dL (3.2-5.2); Albumin/Globulin Ratio 1.5 (1-3); Calcium 9.1 mg/dL (8.6-10.3); Creatinine, Serum 2.43 mg/dL (0.51-0.95); Magnesium 2.2 mg/dL (1.9-2.7); Potassium 4.1 mmol/L (3.5-5.0); Total Bilirubin 0.5 mg/dL (0.2-1.0); Total Protein 4.9 g/dL (6.4-8.9); eGFR CKD-EPI 20.5 (>60)
[2023-08-15] MEDS: Enoxaparin 30 MG/0.3 ML SYR SUBCUT SCH (12:47)
[2023-08-15] MEDS ORDERED: Magnesium Sulf 4 GM/100 ML IV 4,000 MG/100 ML BAG IVPB ONE (14:00)
[2023-08-15] MEDS: Cholecalciferol (VIT D3) 1,000 unit TAB PO SCH (21:49)
[2023-08-16 05:43] LABS: ABS Lymphocytes 0.1 10^3/uL (1.0-4.8); ABS Neutrophils 1.5 10^3/uL (1.5-7.6); Hematocrit 24.6 % (35-45); Hemoglobin 8.9 g/dL (11.5-14.3); Lymphocyte % 4.3 %; Mean Corpuscular Hemoglobin 31.7 pg (27-33); Mean Corpuscular Volume 88.1 fL (80-97); Mean Platelet Volume 9.2 fL (7.5-11.2); Nucleated Red Blood Cells % 0.2 %/100WBC (0.0-0.8); Platelet Count 55 10^3/uL (150-450); Red Blood Count 2.79 10^6/uL (3.63-4.92); Red Cell Distribution Width 15.4 % (12-17); White Blood Count 1.7 10^3/uL (3.8-11.8)
[2023-08-16 06:33] LABS: Albumin 2.7 g/dL (3.2-5.2); Albumin/Globulin Ratio 1.2 (1-3); Calcium 9.2 mg/dL (8.6-10.3); Creatinine, Serum 2.51 mg/dL (0.51-0.95); Globulin 2.2 g/dL (2-4); Potassium 4.3 mmol/L (3.5-5.0); Total Bilirubin 0.4 mg/dL (0.2-1.0); Total Protein 4.9 g/dL (6.4-8.9); eGFR CKD-EPI 19.7 (>60)
[2023-08-16 09:55] LABS: Magnesium 3.4 mg/dL (1.9-2.7)
[2023-08-16] MEDS ORDERED: Tocilizumab 200 MG/10 ML 10 ml VIAL IVPB ONE (11:22)
[2023-08-16] MEDS ORDERED: TOCILIZUMAB IVPB ONE (12:00)
[2023-08-16] MEDS ORDERED: NS 0.9% IVPB ONE (12:00)
[2023-08-16] MEDS ORDERED: Lactated Ringers 1000 ml BAG 500 ML IV SCH (12:00)
[2023-08-16] MEDS: Enoxaparin 30 MG/0.3 ML SYR SUBCUT SCH (12:18)
[2023-08-16] MEDS: Cholecalciferol (VIT D3) 1,000 unit TAB PO SCH ×2 (23:21→23:34)
[2023-08-16] MEDS ORDERED: Ondansetron 4 mg VIAL 2 MG/ML 2 ml VIAL IV ONE (23:41)
[2023-08-17 05:23] LABS: ALT 45 U/L (7-52); AST 53 U/L (13-39); Albumin 2.8 g/dL (3.2-5.2); Albumin/Globulin Ratio 1.3 (1-3); Alkaline Phosphatase 169 U/L (35-149); Blood Urea Nitrogen 42 mg/dL (6-24); CO2 Carbon Dioxide 20 mmol/L (22-32); Calcium 9.3 mg/dL (8.6-10.3); Creatinine, Serum 2.66 mg/dL (0.51-0.95); Globulin 2.1 g/dL (2-4); Glucose 82 mg/dL (70-100); Total Bilirubin 0.5 mg/dL (0.2-1.0); Total Protein 4.9 g/dL (6.4-8.9); eGFR CKD-EPI 18.4 (>60)
[2023-08-17 05:48] LABS: ABS Lymphocytes 0.1 10^3/uL (1.0-4.8); ABS Neutrophils 1.4 10^3/uL (1.5-7.6); Eosinophil % 1.2 %; Hematocrit 23.5 % (35-45); Hemoglobin 9.1 g/dL (11.5-14.3); Lymphocyte % 5.1 %; Mean Corpuscular Hgb Conc 38.5 g/dL (31-36); Mean Corpuscular Volume 88.3 fL (80-97); Mean Platelet Volume 8.9 fL (7.5-11.2); Nucleated Red Blood Cells % 0.3 %/100WBC (0.0-0.8); Platelet Count 49 10^3/uL (150-450); Red Blood Count 2.67 10^6/uL (3.63-4.92); Red Cell Distribution Width 15.5 % (12-17); White Blood Count 1.5 10^3/uL (3.8-11.8)
[2023-08-17 06:01] LABS: Anion Gap 7 mmol/L (2-16); Chloride 105 mmol/L (101-111); Potassium 4.1 mmol/L (3.5-5.0); Sodium 132 mmol/L (135-145)
[2023-08-17] MEDS: Ondansetron 4 mg VIAL 2 MG/ML 2 ml VIAL IV PRN (16:36)
[2023-08-18 07:27] VITALS: BP 109/64
[2023-08-19] MEDS: Ondansetron 4 mg VIAL 2 MG/ML 2 ml VIAL IV PRN (09:04)
== END 2023-08-19 14:45 | disposition hospice, home (50) | DRG 847 ==
LOC: CHOA 08:17 → ICU 09:26
PROVIDERS: ADMIT Internal Medicine Hematology & Oncology; ATTEND Internal Medicine Hematology & Oncology